=== PATIENT | female | born 1975 | race Caucasian/White ===

== ENCOUNTER → 2021-01-17 | Outpatient (CLI) | payer OTHER ==
--- NOTE | 2021-01-23 12:07 | MM ---
Reason for exam: screening (asymptomatic). Last mammogram was performed 2 years and 2 months ago. History: Taking hormonal contraceptives for 24 years beginning at age 21. Physical Findings: A clinical breast exam by your physician is recommended on an annual basis and results should be correlated with mammographic findings. MG Screening Mammo w CAD Bilateral CC, MLO, and XCCL view(s) were taken. CV view(s) were taken of the right breast. Prior study comparison: November 19, 2018, mammogram, performed at [place]. July 17, 2016, mammogram, performed at [place]. December 22, 2009, bilateral digital screening mammogram. There are scattered fibroglandular densities. There are benign appearing round calcifications bilaterally. There is no discrete abnormality. ASSESSMENT: Benign, BI-RAD 2 RECOMMENDATION: Routine screening mammogram of both breasts in 1 year.
== END ==
LOC: RADMAMWWP 11:23
PROVIDERS: ATTEND Family Medicine
DX: Z12.31 Encounter for screening mammogram for malignant neoplasm of breast (principal)
CPT/HCPCS: 77067

== ENCOUNTER → 2021-06-14 | Outpatient (CLI) | payer OTHER ==
[2021-06-14 15:20] VITALS: BP 144/82; PULSE 92; TEMP 98.1; BMI 50.1
--- NOTE | 2021-06-14 15:42 | P.HPBAR ---
Bariatric H&P - History & Physicial H&P Date: 06/14/21 History & Physicial: Visit/CC: initial clinic visit Patient initial contact: Initial weight: Initial weight in pounds: Height: 5 ft 10 in Initial BMI: Last weight: Current weight: 158.304 kg Current weight in pounds: 349.00 Current BMI: 50.1 [place] body weight (based on NIH guidelines): 68.039 kg Excess body weight loss: The patient is a 46 year-old F who presents for Bariatric Assessment. 46-year-old female presents for initial bariatric assessment. Patient interested in sleeve gastrectomy. She has friends who have had performed before. Patient suffers from osteoarthritis of her knees, hypertension, mild reflux. No history of DVT or dysphagia. Tobacco use absent for the last many years. States she may have had a duodenal ulcer in high school. Surgical history includes sinus and tonsils. No abdominal surgeries. No known hernias. Review of Systems The patient denies any acute changes in vision or hearing, no dysphagia or odynophagia, no chest pain or shortness of breath, no dysuria or hematuria, no headache, no runny nose, no rectal bleeding or melena, no unexplained weight loss Past Medical History Past Medical History: Hypertension, Thyroid Disorder History of Any Multi-Drug Resistant Organisms: None Reported Past Surgical History: Adenoidectomy, Tonsillectomy Additional Past Surgical History / Comment(s): sinus surgery x 2 Past Anesthesia/Blood Transfusion Reactions: No Reported Reaction Past Psychological History: No Psychological Hx Reported Smoking Status: Never smoker Past Alcohol Use History: Occasional Past Drug Use History: None Reported Surgical - Exam Vital Signs Temp Pulse BP 98.1 F 92 144/82 06/14/21 15:11 06/14/21 15:11 06/14/21 15:11 Physical exam: General: Well-developed, well-nourished HEENT: Normocephalic, sclerae nonicteric Abdomen: Nontender, nondistended Extremities: No edema Neuro: Alert and oriented Bariatric Assessment & Plan (1) Morbid obesity with BMI of 50.0-59.9, adult Narrative/Plan: 46-year-old with morbid obesity. Patient has associated comorbidities. Risks and benefits of sleeve gastrectomy and gastric bypass discussed in detail. Anticipated weight loss with the 2 procedures was also discussed. Patient is planning to further investigate gastric bypass given the slightly higher degree of anticipated weight loss. Patient does require a supervised weight loss program. She will notify me if she desires to see somebody to discuss gastric bypass further. For now will plan upper endoscopy in approximately 4 months. Status: Acute Bariatric Checklist Checklist: Plan: Checklist: EGD: 1. Hiatal hernia: 2. H. Pylori: HgbA1c: Vitamin D: Smoking: Primary care physician referral: Psychiatry clearance: Cardiology clearance: Sleep study: Diet journal: VTE risk score: VTE risk level: Rehab needs at discharge:
[2021-06-14 16:37] LABS: HCT 37.8 % (34.0-46.0); HGB 12.8 gm/dL (11.4-16.0); MCHC 33.9 g/dL (31.0-37.0); MCV 91.6 fL (80.0-100.0); Mean Platelet Volume 6.9; Platelet Count 425 k/uL (150-450); RBC 4.13 m/uL (3.80-5.40); RDW 13.7 % (11.5-15.5); WBC 8.8 k/uL (3.8-10.6)
[2021-06-15 01:23] LABS: Hemoglobin A1C 5.7 % (4.0-6.0)
[2021-06-15 16:11] LABS: Folate, Serum 20.4 ng/mL
[2021-06-15 16:57] LABS: African American GFR (CKD) 119.6 (60.0-200.0); Albumin 4.3 g/dL (3.80-4.90); Albumin/Globulin Ratio 1.95 (1.60-3.17); Anion Gap 14.5 mmol/L (4.00-12.00); BUN/Creat Ratio 17.14 Ratio (12.00-20.00); Calcium 9.3 mg/dL (8.7-10.3); Carbon Dioxide 21.5 mmol/L (21.6-31.8); Globulin 2.2 g/dL (1.6-3.3); Non-African American GFR(CKD) 103.2 (60.0-200.0); Potassium 4.4 mmol/L (3.5-5.5); Total Bilirubin 0.2 mg/dL (0.2-1.2); Total Protein 6.5 g/dL (6.2-8.2)
== END ==
LOC: BARWHC3 14:57
PROVIDERS: ATTEND Surgery
DX: E66.01 Morbid (severe) obesity due to excess calories (principal); I10 Essential (primary) hypertension; M17.0 Bilateral primary osteoarthritis of knee; Z68.43 Body mass index [BMI] 50.0-59.9, adult
CPT/HCPCS: 84425; 80053; 82607; 82746; 83540; 85027; 82306; 83036; 93005; G0480; G0463; 80323; 99203

== ENCOUNTER 2021-08-24 23:09 | Emergency (ER) | payer OTHER ==
[2021-08-24 23:31] VITALS: RESP 18; TEMP 99
[2021-08-25] MEDS ORDERED: ONDANSETRON 4 MG/2 ML VIAL IVP STA (00:01)
[2021-08-25] MEDS ORDERED: KETOROLAC 15 MG/ML 1 ML VIAL IVP STA (00:01)
[2021-08-25] MEDS ORDERED: SODIUM CHLORIDE 0.9% 1,000 ML IV STA (00:01)
[2021-08-25 00:30] LABS: Basophils % (A) 0 %; Eosinophils # (A) 0.3 k/uL (0-0.7); Eosinophils % (A) 1 %; HGB 13.4 gm/dL (11.4-16.0); Lymphocytes # (A) 1.6 k/uL (1.0-4.8); Lymphocytes % (A) 8 %; MCH 30.7 pg (25.0-35.0); MCHC 33.4 g/dL (31.0-37.0); MCV 91.8 fL (80.0-100.0); Mean Platelet Volume 7.8; Monocytes % (A) 5 %; Neutrophils # (A) 16.4 k/uL (1.3-7.7); Neutrophils % (A) 84 %; Platelet Count 434 k/uL (150-450); RBC 4.35 m/uL (3.80-5.40); RDW 12.4 % (11.5-15.5); WBC 19.5 k/uL (3.8-10.6)
[2021-08-25 00:39] LABS: ALT 230 U/L (4-34); AST 142 U/L (14-36); African American GFR (CKD) >90 (>60 ml/min/1.73 sqM); Albumin 4.3 g/dL (3.5-5.0); Alkaline Phosphatase 172 U/L (38-126); Amylase 41 U/L (30-110); Anion Gap 12 mmol/L; Appearance,Urine Turbid (Clear); Bacteria,Urine Many /hpf; Bilirubin,Urine Negative (Negative); Blood Urea Nitrogen 8 mg/dL (7-17); Blood,Urine Small (Negative); Calcium 9.5 mg/dL (8.4-10.2); Carbon Dioxide 22 mmol/L (22-30); Chloride 100 mmol/L (98-107); Color,Urine Yellow; Glucose 139 mg/dL (74-99); Glucose,Urine (UA) Negative (Negative); Hyaline Casts,Urine 194 /lpf (0-2); Ketones,Urine Negative (Negative); Leukocyte Esterase,Urine Large (Negative); Lipase 70 U/L (23-300); Mucus,Urine Many /hpf; Nitrite,Urine Negative (Negative); Non-African American GFR(CKD) >90 (>60 ml/min/1.73 sqM); Potassium 3.7 mmol/L (3.5-5.1); Protein,Urine 2+ (Negative); RBC,Urine 5 /hpf (0-5); Sodium 134 mmol/L (137-145); Specific Gravity,Urine 1.018 (1.001-1.035); Squamous Epithelial Cell,Urine 6 /hpf (0-4); Total Bilirubin 0.6 mg/dL (0.2-1.3); Total Protein 7.1 g/dL (6.3-8.2); WBC,Urine >182 /hpf (0-5)
[2021-08-25] MEDS ORDERED: cefTRIAXone IN SWFI 1,000 MG/10 ML SYRINGE IVP STA (00:47)
--- NOTE | 2021-08-25 01:39 | ED ---
Abdominal Pain HPI - General Chief Complaint: Abdominal Pain Stated Complaint: RLQ pain Time Seen by Provider: 08/24/21 23:52 Source: patient, RN notes reviewed Mode of arrival: ambulatory Limitations: no limitations - History of Present Illness Initial Comments: Patient is a 46-year-old female that presents to emergency department for a 2 to three-day history of right flank pain with radiation to her groin. She denies having any history of kidney stones, kidney infections, urine or tract infections patient is that she does still have her appendix and was concerned so she can emergency room. She notes that she is also having some urinary frequen cy with no discomfort. She notes that her daughter does currently have UTI. She denied any other complaints such as nausea vomiting. She notes that she did have several bouts of diarrhea several days ago. She denied any alleviating or radiating factors at this time. She denied chest pain first breath headache nausea vomiting constipation fever fatigue chills. - Related Data Home Medications Medication Instructions Recorded Confirmed L.acidoph,Paracasei, B.lactis 1 tab PO DAILY 06/14/21 06/14/21 [Probiotic] Levothyroxine Sodium [Synthroid] 200 mcg PO DAILY 06/14/21 06/14/21 Multivitamins, Thera [Multivitamin 1 tab PO DAILY 06/14/21 06/14/21 (formulary)] Spironolactone [Aldactone] 150 mg PO DAILY 06/14/21 06/14/21 Zinc 50 mg PO DAILY 06/14/21 06/14/21 Previous Rx's Medication Instructions Recorded Cephalexin [Keflex] 500 mg PO Q6HR #40 cap 08/25/21 Allergies Allergy/AdvReac Type Severity Reaction Status Date / Time No Known Allergies Allergy Verified 08/24/21 23:26 Review of Systems ROS Statement: Those systems with pertinent positive or pertinent negative responses have been documented in the HPI. ROS Other: All systems not noted in ROS Statement are negative. Past Medical History Past Medical History: Hypertension, Thyroid Disorder History of Any Multi-Drug Resistant Organisms: None Reported Past Surgical History: Adenoidectomy, Tonsillectomy Additional Past Surgical History / Comment(s): sinus surgery x 2 Past Anesthesia/Blood Transfusion Reactions: No Reported Reaction Past Psychological History: No Psychological Hx Reported Smoking Status: Never smoker Past Alcohol Use History: Occasional Past Drug Use History: None Reported General Exam Limitations: no limitations General appearance: alert, in no apparent distress, obese Head exam: Present: atraumatic, normocephalic, normal inspection Eye exam: Present: normal appearance, PERRL, EOMI. Absent: scleral icterus, conjunctival injection, periorbital swelling ENT exam: Present: normal exam, mucous membranes moist Neck exam: Present: normal inspection Respiratory exam: Present: normal lung sounds bilaterally. Absent: respiratory distress, wheezes, rales, rhonchi, stridor Cardiovascular Exam: Present: regular rate, normal rhythm, normal heart sounds. Absent: systolic murmur, diastolic murmur, rubs, gallop, clicks GI/Abdominal exam: Present: soft, tenderness (Right side and suprapubic area), normal bowel sounds. Absent: distended, guarding, rebound, rigid Extremities exam: Present: normal inspection, full ROM, normal capillary refill. Absent: tenderness, pedal edema, joint swelling, calf tenderness Back exam: Present: normal inspection, CVA tenderness (R) Neurological exam: Present: alert, oriented X3 Psychiatric exam: Present: normal affect, normal mood Skin exam: Present: warm, dry, intact, normal color. Absent: rash Course Vital Signs 08/24/21 08/25/21 23:26 00:30 Temperature 99 F Pulse Rate 106 H 99 Respiratory 18 18 Rate Blood Pressure 134/87 141/97 O2 Sat by Pulse 97 95 Oximetry Medical Decision Making - Medical Decision Making 46-year-old female complaining of right sided abdominal pain and right flank pain. Labs, 1 L normal saline, 15 mg of Toradol, 4 mg Zofran ordered. Labs: White blood cells 19.5, elevated liver enzymes, urinalysis shows rhythm 182 white blood cells. 1 g Rocephin ordered. Computed tomography scan shows right-sided hydronephrosis and hydroureter ureter and a right pole hypodensity consistent with acute pyelonephritis. Antibiotics will be sent to pharmacy. Patient is we will with discharge home after discussing labs and imaging. Case discussed with Dr. Cowan, patient can discharge home. - Lab Data Result diagrams: 08/25/21 00:17 08/25/21 00:17 Lab Results 08/25/21 08/25/21 08/25/21 Range/Units 00:17 00:17 00:17 WBC 19.5 H (3.8-10.6) k/uL RBC 4.35 (3.80-5.40) m/uL Hgb 13.4 (11.4-16.0) gm/dL Hct 40.0 (34.0-46.0) % MCV 91.8 (80.0-100.0) fL MCH 30.7 (25.0-35.0) pg MCHC 33.4 (31.0-37.0) g/dL RDW 12.4 (11.5-15.5) % Plt Count 434 (150-450) k/uL MPV 7.8 Neutrophils % 84 % Lymphocytes % 8 % Monocytes % 5 % Eosinophils % 1 % Basophils % 0 % Neutrophils # 16.4 H (1.3-7.7) k/uL Lymphocytes # 1.6 (1.0-4.8) k/uL Monocytes # 1.0 (0-1.0) k/uL Eosinophils # 0.3 (0-0.7) k/uL Basophils # 0.0 (0-0.2) k/uL Sodium 134 L (137-145) mmol/L Potassium 3.7 (3.5-5.1) mmol/L Chloride 100 (98-107) mmol/L Carbon Dioxide 22 (22-30) mmol/L Anion Gap 12 mmol/L BUN 8 (7-17) mg/dL Creatinine 0.72 (0.52-1.04) mg/dL Est GFR (CKD-EPI)AfAm >90 (>60 ml/min/1.73 sqM) Est GFR (CKD-EPI)NonAf >90 (>60 ml/min/1.73 sqM) Glucose 139 H (74-99) mg/dL Calcium 9.5 (8.4-10.2) mg/dL Total Bilirubin 0.6 (0.2-1.3) mg/dL AST 142 H (14-36) U/L ALT 230 H (4-34) U/L Alkaline Phosphatase 172 H (38-126) U/L Total Protein 7.1 (6.3-8.2) g/dL Albumin 4.3 (3.5-5.0) g/dL Amylase 41 (30-110) U/L Lipase 70 (23-300) U/L Urine Color Yellow Urine Appearance Turbid H (Clear) Urine pH 6.0 (5.0-8.0) Ur Specific [place] 1.018 (1.001-1.035) Urine Protein 2+ H (Negative) Urine Glucose (UA) Negative (Negative) Urine Ketones Negative (Negative) Urine Blood Small H (Negative) Urine Nitrite Negative (Negative) Urine Bilirubin Negative (Negative) Urine Urobilinogen 2.0 (<2.0) mg/dL Ur Leukocyte Esterase Large H (Negative) Urine RBC 5 (0-5) /hpf Urine WBC >182 H (0-5) /hpf Urine WBC Clumps Many H (None) /hpf Ur Squamous Epith Cells 6 H (0-4) /hpf Urine Bacteria Many H (None) /hpf Hyaline Casts 194 H (0-2) /lpf Urine Mucus Many H (None) /hpf Disposition Clinical Impression: Pyelonephritis Disposition: HOME SELF-CARE Condition: Stable Instructions (If sedation given, give patient instructions): Kidney Infection (ED) Additional Instructions: Please return to the Emergency Department if symptoms worsen or any other concerns. Follow-up with primary care 1-2 days. Take antibiotics as prescribed until complete. Prescriptions: Cephalexin [Keflex] 500 mg PO Q6HR #40 cap Is patient prescribed a controlled substance at d/c from ED?: No Referrals: Babar Perry DO [Primary Care Provider] - 1-2 days Time of Disposition: 02:43
--- NOTE | 2021-08-25 02:16 | CT ---
EXAMINATION TYPE: CT abdomen pelvis w con DATE OF EXAM: 08/25/2021 COMPARISON: None HISTORY: RLQ pain CT DLP: 2356 mGycm Automated exposure control for dose reduction was used. CONTRAST: Performed with IV Contrast, patient injected with 100 mL of Isovue 300. Images obtained from the diaphragm to the floor the pelvis with IV contrast. The lung bases are clear of infiltrate. There is no pleural effusion. There is no pericardial effusio n. Heart size is normal. Liver spleen stomach pancreas gallbladder appear normal. Bile ducts are nondilated. There is no adrenal mass. Right kidney appears enlarged. There is contrast opacification of both kidn eys but delayed images do not show any significant renal excretion. There is right-sided hydronephros is and hydroureter. There is some hypodensity in the cortex lower pole posterior right kidney. This m easures 4.5 cm. There is no retroperitoneal adenopathy. I do not see a definite stone in the right ur eter. The urinary bladder is almost empty. There is no inguinal hernia. Uterus is intact. There is no evidence of a pelvic mass. There is 1.5 cm cyst on the left ovary. There is no mesenteric edema. There is no ascites or free air. There is no evidence of thickened appe ndix. There is very small posterior appendix. Lumbar vertebra have normal alignment. There is vacuum disc at L2-3. There is no compression fracture . The bony pelvis is intact. The hip joints are intact. There is no mesenteric edema. There is no ascites or free air. There is some mild fat stranding and f luid around the posterior aspect of the right kidney. IMPRESSION: Right-sided hydronephrosis and hydroureter. No calculus seen. There is cortical hypodensity lower hallie e right kidney. There is some fluid around the posterior right kidney. This could relate to acute heath lonephritis. Renal obstruction not excluded. There is decreased delayed contrast in the kidneys that is suggestive of some degree of renal failure .
[2021-08-25 03:27] VITALS: BP 102/72; PULSE 96
== END 2021-08-25 03:26 | disposition home or self-care (01) ==
LOC: EC 23:09
DX: N10 Acute pyelonephritis (principal); I10 Essential (primary) hypertension; E07.9 Disorder of thyroid, unspecified; Z90.89 Acquired absence of other organs; Z87.442 Personal history of urinary calculi
CPT/HCPCS: 99284; 96374; 96375 ×2; 96361; 36415; 80053; 82150; 83690; 85025; 81001; 87086; 74177; J2405; J0696; J1885; Q9967

== ENCOUNTER → 2021-12-10 | Outpatient (CLI) | payer OTHER ==
--- NOTE | 2021-12-10 10:59 | XR ---
EXAMINATION TYPE: XR chest 1V DATE OF EXAM: 12/10/2021 COMPARISON: NONE HISTORY: Chest pain TECHNIQUE: Single frontal view of the chest is obtained. FINDINGS: There is no focal air space opacity, pleural effusion, or pneumothorax seen. The cardiac silhouette size is within normal limits. The osseous structures are intact. IMPRESSION: 1. No acute process.
[2021-12-10 12:49] VITALS: BMI 44.6
== END ==
LOC: BARWHC3 08:44
PROVIDERS: ATTEND Surgery
DX: E66.01 Morbid (severe) obesity due to excess calories (principal); G47.33 Obstructive sleep apnea (adult) (pediatric); Z71.3 Dietary counseling and surveillance; Z68.41 Body mass index [BMI] 40.0-44.9, adult
CPT/HCPCS: 71045; 97804

== ENCOUNTER 2021-12-11 11:01 | Day surgery (SDC) | payer OTHER ==
[2021-12-06 14:12] VITALS: BMI 44.4
[~2021-12-11 11:01] MED LIST: LACTATED RINGERS 1,000 ML IV SCH; LIDOCAINE 1% (10MG/ML) FOR IV START INTRADERMA PRN
[2021-12-11 11:35] VITALS: TEMP 97.7
[2021-12-11] MEDS ORDERED: PROPOFOL 10 MG/ML 20 ML VIAL IV ONE (12:10)
[2021-12-11] MEDS ORDERED: LIDOCAINE 1% INJ 10MG/ML (20 ML MDV) ONE (12:10)
--- NOTE | 2021-12-11 12:15 | P.GSHP ---
History of Present Illness H&P Date: 12/11/21 Chief Complaint: GERD, presurgical 46-year-old female last seen in the bariatric Center in June. Patient is being evaluated for sleeve gastrectomy. Mild complaints of reflux. History of possible duodenal ulcer in the past. She had a recent CAT scan showing no definite hiatal hernia. Past Medical History Past Medical History: Hypertension, Thyroid Disorder History of Any Multi-Drug Resistant Organisms: None Reported Past Surgical History: Adenoidectomy, Tonsillectomy Additional Past Surgical History / Comment(s): sinus surgery x 2 Past Anesthesia/Blood Transfusion Reactions: No Reported Reaction Smoking Status: Former smoker - Past Family History Mother Family Medical History: No Reported History Medications and Allergies Home Medications Medication Instructions Recorded Confirmed Type L.acidoph,Paracasei, B.lactis 1 tab PO DAILY 06/14/21 12/06/21 History [Probiotic] Levothyroxine Sodium [Synthroid] 200 mcg PO DAILY 06/14/21 12/06/21 History Multivitamins, Thera [Multivitamin 1 tab PO DAILY 06/14/21 12/11/21 History (formulary)] Spironolactone [Aldactone] 150 mg PO DAILY 06/14/21 12/06/21 History Zinc 50 mg PO DAILY 06/14/21 12/11/21 History Norethindrone-E.estradiol-Iron 1 each PO HS 12/06/21 12/06/21 History [Junel Fe 1.5 mg-30 Mcg Tablet] Allergies Allergy/AdvReac Type Severity Reaction Status Date / Time No Known Allergies Allergy Verified 12/11/21 11:25 Surgical - Exam Vital Signs Temp Pulse Resp BP Pulse Ox 97.7 F 97 16 125/97 98 12/11/21 11:34 12/11/21 11:34 12/11/21 11:34 12/11/21 11:34 12/11/21 11:34 Physical exam: General: Well-developed, well-nourished HEENT: Normocephalic, sclerae nonicteric Abdomen: Nontender, nondistended Extremities: No edema Neuro: Alert and oriented Assessment and Plan (1) GERD (gastroesophageal reflux disease) Narrative/Plan: Will proceed with upper endoscopy at this time Current Visit: Yes Status: Acute Code(s): K21.9 - GASTRO-ESOPHAGEAL REFLUX DISEASE WITHOUT ESOPHAGITIS SNOMED Code(s): 927394609
--- NOTE | 2021-12-11 12:22 | P.PCN ---
Date of Procedure: 12/11/21 Procedure(s) Performed: Preoperative Dx: GERD, presurgical Postoperative Dx: Mild gastritis Procedure: EGD with Bx Anesthesia: Sedation Endoscopist: Dr. Choudhury Specimens: Antrum Endoscopic Procedure: The patient was on the endoscopy table in the left decubitus position. The Olympus gastroscope was inserted into the oropharynx and passed under direct visualization to the region of the third portion of the duodenum. From that point the scope was slowly withdrawn inspecting all surfaces carefully. There were no neoplastic inflammatory or polypoid lesions throughout the duodenum. The pylorus was widely patent. The stomach was carefully inspected. There was mild gastritis present. A biopsy of the antrum took place to rule out H. pylori. Retroflexion revealed a normal hiatus. The esophagus was then carefully examined. There were no neoplastic inflammatory or polypoid lesions throughout the visualized esophagus. The patient was then taken to the recovery room in stable condition per anesthesia guidelines. Recommendations: Await biopsy results. Follow-up bariatric clinic.
[2021-12-11 12:45] VITALS: BP 125/85; PULSE 72; RESP 16
== END 2021-12-11 13:10 | disposition home or self-care (01) ==
LOC: ORWHC2ENDO 11:01
PROVIDERS: ATTEND Surgery
DX: K29.50 Unspecified chronic gastritis without bleeding (principal); Z01.818 Encounter for other preprocedural examination; K21.9 Gastro-esophageal reflux disease without esophagitis; I10 Essential (primary) hypertension; E07.9 Disorder of thyroid, unspecified; Z98.890 Other specified postprocedural states; Z87.891 Personal history of nicotine dependence; Z79.890 Hormone replacement therapy; Z79.899 Other long term (current) drug therapy
CPT/HCPCS: 81025; 88305; 43239; J2001; J2704

== ENCOUNTER → 2022-01-08 | Outpatient (CLI) | payer OTHER ==
[2022-01-08 14:43] VITALS: BP 140/97; PULSE 97; TEMP 98.6; BMI 44.1
--- NOTE | 2022-01-08 15:40 | P.BASOAP ---
Subjective Progress Note Date: 01/08/22 Principal diagnosis: Morbid obesity Patient returns after recent EGD. Patient had mild gastritis. No hiatal hernia. H. pylori was negative. Since her last visit patient has had increased back pain and is having an MRI of her back next week. She has also had increased knee pain and had bilateral knee injections recently. Patient remains interested in sleeve gastrectomy. Patient says she was told recently that her iron is low. She says her iron has always been low. Normal menstrual flow. No bowel complaints. No rectal bleeding or melena. Objective - Vital Signs Vital signs: Vital Signs Temp 98.6 F 01/08/22 14:42 Pulse 97 01/08/22 14:42 Resp BP 140/97 01/08/22 14:42 Pulse Ox Intake & Output 01/07/22 01/08/22 01/08/22 18:59 06:59 18:59 Weight 139.706 kg - Exam Abdomen: Soft, nontender, nondistended Assessment/Plan (1) Morbid obesity with BMI of 50.0-59.9, adult Narrative/Plan: 46-year-old female remains interested in sleeve gastrectomy. Discussed possibility that this may be performed robotically versus straight laparoscopic. The risks of bleeding, infection, stenosis, stricture, leak, abscess, fistula formation, peritonitis, poor weight loss, reflux, vomiting, conversion to an open procedure, aborting sleeve gastrectomy, ME, PE, DVT, and were d iscussed. The patient understands and wishes to proceed. Plan: Date: 01/08/22 Initial Weight: Initial BMI: Current Weight: 139.706 kg Current BMI: 44.1 Type of Surgery: Total Volume in Band: Previous Volume: Volume Removed: Volume Added: Band Size:
== END ==
LOC: BARWHC3 14:01
PROVIDERS: ATTEND Surgery
DX: E66.01 Morbid (severe) obesity due to excess calories (principal); K29.70 Gastritis, unspecified, without bleeding; M54.9 Dorsalgia, unspecified; Z68.41 Body mass index [BMI] 40.0-44.9, adult
CPT/HCPCS: 99211

== ENCOUNTER → 2022-01-23 | Outpatient (CLI) | payer OTHER ==
--- NOTE | 2022-01-25 13:34 | MM ---
Reason for exam: screening (asymptomatic). Last mammogram was performed 1 year ago. History: Taking hormonal contraceptives for 24 years beginning at age 21. Physical Findings: A clinical breast exam by your physician is recommended on an annual basis and results should be correlated with mammographic findings. MG Screening Mammo w CAD Bilateral CC and MLO view(s) were taken. Prior study comparison: January 17, 2021, bilateral MG screening mammo w CAD. November 19, 2018, mammogram, performed at [place]. There are scattered fibroglandular densities. A few benign scattered benign oil cyst calcifications. No significant changes when compared with prior studies. ASSESSMENT: Benign, BI-RAD 2 RECOMMENDATION: Routine screening mammogram of both breasts in 1 year.
== END | disposition home or self-care (01) ==
LOC: RADMAMWWP 15:58
PROVIDERS: ATTEND Family Medicine
DX: Z12.31 Encounter for screening mammogram for malignant neoplasm of breast (principal)
CPT/HCPCS: 77067

== ENCOUNTER → 2022-02-25 | Outpatient (CLI) | payer OTHER | END | disposition home or self-care (01) | LOC: LABPAT 14:56 | PROVIDERS: ATTEND Surgery | DX: Z53.9 Procedure and treatment not carried out, unspecified reason (principal) ==

== ENCOUNTER 2022-03-04 08:27 | Inpatient (IN) | payer OTHER ==
[2022-02-26 07:43] LABS: African American GFR (CKD) 125.5 (60.0-200.0); Albumin 4.9 g/dL (3.8-4.9); Albumin/Globulin Ratio 2.19 (1.60-3.17); Anion Gap 14.7 mmol/L (10.00-18.00); BUN/Creat Ratio 22.52 Ratio (12.00-20.00); Basophils # (A) 0.04 X 10*3/uL (0.00-0.10); Basophils % (A) 0.3 %; Blood Urea Nitrogen 13.6 mg/dL (9.0-27.0); Calcium 9.8 mg/dL (8.7-10.3); Carbon Dioxide 24.2 mmol/L (20.0-27.5); Eosinophils # (A) 0.15 X 10*3/uL (0.04-0.35); Eosinophils % (A) 1.2 %; Globulin 2.2 g/dL (1.6-3.3); HCT 40.6 % (37.2-46.3); HGB 12.7 g/dL (12.0-15.0); Immature Grans, Automated 0.2 %; Lymphocytes # (A) 2.89 X 10*3/uL (0.90-5.00); MCH 29.7 pg (27.0-32.0); MCHC 31.3 g/dL (32.0-37.0); MCV 95.1 fL (80.0-97.0); Mean Platelet Volume 10.5 fL (9.5-12.2); Monocytes # (A) 0.81 X 10*3/uL (0.20-1.00); Monocytes % (A) 6.4 %; NRBC Per 100 WBC 0 /100 WBCS (0.0-0.0); Neutrophils # (A) 8.67 X 10*3/uL (1.80-7.70); Neutrophils % (A) 68.9 %; Non-African American GFR(CKD) 108.3 (60.0-200.0); Platelet Count 455 X 10*3/uL (140-440); Potassium 4.8 mmol/L (3.5-5.5); RBC 4.27 X 10*6/uL (4.10-5.20); RDW 12.7 % (11.5-14.5); Total Bilirubin 0.2 mg/dL (0.30-1.20); Total Protein 7.1 g/dL (6.2-8.2); WBC 12.59 X 10*3/uL (4.50-10.00)
--- NOTE | 2022-03-04 08:02 | P.GSHP ---
History of Present Illness H&P Date: 03/04/22 Chief Complaint: Morbid obesity 46-year-old female here today for elective sleeve gastrectomy. She was first seen in June of last year. Patient presented with a BMI of 50 currently 42.5. Patient suffers from ulcerative arthritis hypertension and mild reflux. No history of DVT or dysphagia. Recent EGD showed mild gastritis. No abdominal surgeries in the past. Past Medical History Past Medical History: Hypertension, Osteoarthritis (OA), Thyroid Disorder Additional Past Medical History / Comment(s): DDD, bone spurs, herniated lumbar disc History of Any Multi-Drug Resistant Organisms: None Reported Past Surgical History: Adenoidectomy, Tonsillectomy Additional Past Surgical History / Comment(s): sinus surgery x 2, EGD Past Anesthesia/Blood Transfusion Reactions: No Reported Reaction Smoking Status: Former smoker - Past Family History Mother Family Medical History: No Reported History Medications and Allergies Home Medications Medication Instructions Recorded Confirmed Type L.acidoph,Paracasei, B.lactis 1 tab PO DAILY 06/14/21 02/28/22 History [Probiotic] Levothyroxine Sodium [Synthroid] 200 mcg PO MOTUWETHFR 06/14/21 02/28/22 History Multivitamins, Thera [Multivitamin 1 tab PO DAILY 06/14/21 02/28/22 History (formulary)] Spironolactone [Aldactone] 50 mg PO DAILY 06/14/21 02/28/22 History Zinc 50 mg PO DAILY 06/14/21 02/28/22 History Norethindrone-E.estradiol-Iron 1 each PO DAILY 12/06/21 02/28/22 History [Junel Fe 1.5 mg-30 Mcg Tablet] Ascorbic Acid [Vitamin C] 1,000 mg PO DAILY 02/28/22 02/28/22 History Calcium Carbonate [Calcium] 600 mg PO DAILY 02/28/22 02/28/22 History Cholecalciferol (Vitamin D3) 250 mcg PO DAILY 02/28/22 02/28/22 History [Vitamin D3 (125 MCG = 5,000 IU)] Ferrous Sulfate [Feosol] 325 mg PO DAILY 02/28/22 02/28/22 History Levothyroxine Sodium [Synthroid] 100 mcg PO SUSA 02/28/22 02/28/22 History Vitamin C/Biotin [Hair, Skin and 1 tab PO DAILY 02/28/22 02/28/22 History Nails Chew] Allergies Allergy/AdvReac Type Severity Reaction Status Date / Time No Known Allergies Allergy Verified 02/28/22 15:17 Surgical - Exam Physical exam: General: Well-developed, well-nourished HEENT: Normocephalic, sclerae nonicteric Abdomen: Nontender, nondistended Extremities: No edema Neuro: Alert and oriented Results - Labs 02/25/22 16:13 02/25/22 16:13 Assessment and Plan (1) Morbid obesity with BMI of 50.0-59.9, adult Narrative/Plan: 46-year-old female with morbid obesity and associated comorbidities. We'll proceed with da Karol assisted laparoscopic sleeve gastrectomy, possible open. The risks of bleeding, infection, stenosis, stricture, leak, abscess, fistula formation, peritonitis, poor weight loss, reflux, vomiting, conversion to an open procedure, aborting sleeve gastrectomy, VT, PE, DVT, and were discussed. The patient understands and wishes to proceed. Status: Acute Code(s): E66.01 - MORBID (SEVERE) OBESITY DUE TO EXCESS CALORIES; Z68.43 - BODY MASS INDEX [BMI] 50.0-59.9, ADULT SNOMED Code(s): 158732179
[~2022-03-04 08:27] MED LIST changes: +DEXAMETHASONE SOD PHOSPHATE 4 MG/ML 1 ML VIAL IV ONE; +ENOXAPARIN 40 MG/0.4 ML SYRINGE SQ PRN; -LACTATED RINGERS 1,000 ML IV SCH; +MIDAZOLAM 2 MG/2 ML VIAL IV PRN; +ONDANSETRON 4 MG/2 ML VIAL IVP ONE; +ceFAZolin 3 GM in SODIUM CHLORIDE 0.9% 100 ML IVPB PRN
[2022-03-04] MEDS: LACTATED RINGERS 1,000 ML IV SCH (08:56)
[2022-03-04] MEDS ORDERED: MIDAZOLAM 2 MG/2 ML VIAL ONE (10:43)
[2022-03-04] MEDS ORDERED: BUPIVACAIN-EPI 0.25%-1:200,000 30 ML VIAL SQ ONE ×2 (10:43→11:00)
[2022-03-04] MEDS ORDERED: GLYCOPYRROLATE 0.2 MG/ML 2 ML VIAL ONE (10:43)
[2022-03-04] MEDS ORDERED: SUCCINYLCHOLINE CHLORIDE 100 MG/5 ML SYR IV ONE (10:43)
[2022-03-04] MEDS ORDERED: HYDROmorphone (PF) 1 MG/ML ONE (10:43)
[2022-03-04] MEDS ORDERED: ROCURONIUM 10 MG/ML (5 ML VIAL) IV ONE (10:43)
[2022-03-04] MEDS ORDERED: PROPOFOL 10 MG/ML 20 ML VIAL IV ONE (10:43)
[2022-03-04] MEDS ORDERED: LIDOCAINE 2% INJ 20 MG/ML (2 ML VIAL) ONE (10:43)
[2022-03-04] MEDS ORDERED: fentaNYL (PF) 50 MCG/ML 2 ML AMP ONE (10:43)
[2022-03-04] MEDS ORDERED: NEOSTIGMINE 1 MG/ML 10 ML VIAL ONE (10:43)
[2022-03-04] MEDS ORDERED: LACTATED RINGERS 1,000 ML IV ONE (11:53)
[2022-03-04] MEDS ORDERED: diphenhydrAMINE 50 MG/ML 1 ML VIAL IVP PRN (12:32)
[2022-03-04] MEDS ORDERED: NALOXONE 0.4 MG/ML 1 ML VIAL IV PRN (12:32)
[2022-03-04] MEDS ORDERED: HYOSCYAMINE ORAL DROPS 1.875 MG/15 ML BOTTLE PO PRN (12:32)
[2022-03-04] MEDS ORDERED: ACETAMINOPHEN IV (For NPO) 1,000 MG in EMPTY BAG 1 BAG IVPB SCH (12:45)
--- NOTE | 2022-03-04 12:54 | P.OP ---
Date of Procedure: 03/04/22 Procedure(s) Performed: PREOPERATIVE DIAGNOSIS: Morbid obesity, hypertension, GERD, arthritis POSTOPERATIVE DIAGNOSIS: Same PROCEDURE: Da Karol assisted laparoscopic sleeve gastrectomy SURGEON: Kei EBL: Minimal ANESTHESIA: General COMPLICATIONS: None OPERATIVE PROCEDURE: Patient was placed in the operating table in the supine position. The patient was then placed under general anesthesia at that time. The abdomen was prepped and draped in the usual sterile fashion. A 5 mm optical trocar was placed in the left periumbilical location 20 cm inferior to the xiphoid process. Insufflation took place up to 15 mmHg. No adhesions were seen. A 5 mm subxiphoid incision was made and the medium Mariano retractor was used to elevate the left lobe of liver anteriorly. This was held in place using the fixed arm retractor. An additional 12 mm trocar was placed in the right paramedian location and 2 additional 8 mm trochars were placed in the left upper quadrant laterally. All of these trochars were placed along the same plane. The initial 5 was then switched to an 8 mm trocar. The robot was then docked appropriately. The 8 mm camera was placed in the left paramedian trocar site down viewing. A fenestrated bipolar was placed in arm 1, arm 3 had the vessel sealer, arm 4 had the small grasping retractor. The hiatus was inspected and there was no visible hiatal hernia. At that point I moved to the distal aspect of the greater curvature the stomach. The short gastric vasculature were divided using the vessel sealer. This dissection took place distally until we were 4 cm from the pylorus. The posterior adhesions were divided as well. The dissection then took place proximally along the stomach until the posterior short gastrics were divided and the fundus of the stomach was fully mobilized. Once the stomach was fully mobilized the blunt tipped 40-Maori bougie dilator was advanced into the stomach and advanced all the way to the prepyloric location. The patient's stomach by palpation seemed to be of average thickness. No buttressing was utilized. A total of 7 firings of the stapler were required. 1 Green, 3 blue, 3 white. The stomach was then placed in the right upper quadrant after it was fully excised. The oral gastric tube was reinserted. The stomach was insufflated with approximately 100 mL of methylene blue. No evidence of leak or obstruction was seen. No significant bleeding along the staple line was noted. Tisseel fibrin glue was then used along the length of the staple line. The robot was then undocked. The da Karol laparoscope was used and the stomach was removed from the 12 mm trocar site without difficulty. The fascia at the 12mm site was closed using [id number] 0 Vicryl sutures with the laparoscopic suture passer and Zion Candelario technique. The insufflation was evacuated. The skin at all 5 incisions were closed using 4-0 Monocryl sutures. Skin glue was then applied. DISPOSITION: Stable to recovery room
[2022-03-04] MEDS ORDERED: ONDANSETRON 4 MG/2 ML VIAL IVP ONE (13:00)
[2022-03-04] MEDS: HYDROmorphone 0.5 MG/0.5 ML SYRINGE IVP PRN ×2 (13:12→14:18)
[2022-03-04] MEDS: ALBUTEROL NEBULIZED 2.5 MG/3 ML INHALATION SCH ×2 (16:14→19:23)
[2022-03-04] MEDS: HYDROmorphone 1 MG/ML 1 ML SYRINGE IVP PRN ×2 (16:49→20:26)
[2022-03-04] MEDS: 0.9% NACL WITH KCL 20 MEQ/L 1,000 ML IV SCH (17:19)
[2022-03-04] MEDS: ACETAMINOPHEN IV (For NPO) 1,000 MG in EMPTY BAG 1 BAG IVPB SCH (21:39)
[2022-03-05] MEDS: 0.9% NACL WITH KCL 20 MEQ/L 1,000 ML IV SCH ×4 (00:05→17:35)
[2022-03-05] MEDS: HYDROmorphone 1 MG/ML 1 ML SYRINGE IVP PRN ×4 (01:29→17:36)
[2022-03-05] MEDS: SIMETHICONE 40 MG/0.6 ML DROPS 2,000 MG/30 ML BOTTLE PO PRN (01:29)
[2022-03-05] MEDS: ACETAMINOPHEN IV (For NPO) 1,000 MG in EMPTY BAG 1 BAG IVPB SCH ×2 (03:54→09:07)
[2022-03-05 06:06] LABS: African American GFR (CKD) >90 (>60 ml/min/1.73 sqM); Anion Gap 12 mmol/L; Blood Urea Nitrogen 7 mg/dL (7-17); Calcium 8.9 mg/dL (8.4-10.2); Carbon Dioxide 20 mmol/L (22-30); Chloride 104 mmol/L (98-107); Magnesium 1.8 mg/dL (1.6-2.3); Non-African American GFR(CKD) >90 (>60 ml/min/1.73 sqM); Phosphorus 3.9 mg/dL (2.5-4.5); Potassium 4.6 mmol/L (3.5-5.1); Sodium 136 mmol/L (137-145)
[2022-03-05] MEDS: LACTATED RINGERS 1,000 ML IV SCH (06:56)
[2022-03-05] MEDS: PANTOPRAZOLE 40 MG/10 ML VIAL IV SCH (09:08)
[2022-03-05] MEDS: ENOXAPARIN 30 MG/0.3 ML SYRINGE SQ SCH (09:08)
[2022-03-05] MEDS: ALBUTEROL NEBULIZED 2.5 MG/3 ML INHALATION SCH ×4 (09:16→19:04)
[2022-03-05 09:18] LABS: Basophils # (A) 0.01 X 10*3/uL (0.00-0.10); Basophils % (A) 0.1 %; Eosinophils # (A) 0.01 X 10*3/uL (0.04-0.35); Eosinophils % (A) 0.1 %; HCT 35.7 % (37.2-46.3); HGB 11.2 g/dL (12.0-15.0); Immature Grans, Automated 0.9 %; Lymphocytes # (A) 2.47 X 10*3/uL (0.90-5.00); Lymphocytes % (A) 19.5 %; MCH 30.1 pg (27.0-32.0); MCHC 31.4 g/dL (32.0-37.0); Mean Platelet Volume 10.7 fL (9.5-12.2); Monocytes # (A) 1.18 X 10*3/uL (0.20-1.00); Monocytes % (A) 9.3 %; NRBC Per 100 WBC 0 /100 WBCS (0.0-0.0); Neutrophils # (A) 8.85 X 10*3/uL (1.80-7.70); Neutrophils % (A) 70.1 %; Platelet Count 316 X 10*3/uL (140-440); RBC 3.72 X 10*6/uL (4.10-5.20); RDW 12.9 % (11.5-14.5); WBC 12.64 X 10*3/uL (4.50-10.00)
--- NOTE | 2022-03-05 09:45 | FL ---
EXAMINATION TYPE: FL UGI DATE OF EXAM: 03/05/2022 LIMITED UGI: CLINICAL HISTORY: Morbid Obesity, gastric sleeve surgery yesterday. TECHNIQUE: Limited UGI-esophagram is performed utilizing 30 oz of Isovue-370. A total of 24 seconds of fluoroscopic time was utilized during procedure and 11 images obtained. COMPARISON: CT abdomen and pelvis August 25, 2021. FINDINGS: The patient swallowed contrast without difficulty or delay. Esophageal peristalsis and mo tility are within normal limits. There is good flow of contrast along the diaphragmatic hiatus into proximal stomach and subsequent flow through proximal anastomosis into gastric sleeve. There is good flow from distal sleeve and anastomosis into pylorus and duodenal sweep. Patient remains asymptomatic . There is no evidence of contrast extravasation to suggest leak. Tiny amount of free air below diaph ragms is presumed postsurgical IMPRESSION: No evidence of leak or significant obstruction status post recent gastric sleeve surgery yesterday.
[2022-03-05] MEDS ORDERED: ONDANSETRON 4 MG/2 ML VIAL IVP PRN (11:05)
[2022-03-05] MEDS ORDERED: ONDANSETRON 4 MG/2 ML VIAL IVP STA (11:06)
[2022-03-05] MEDS ORDERED: MAGNESIUM SULFATE-D5W PMX 1 GM in DEXTROSE/WATER 1 100ML.BAG IVPB ONE (11:08)
--- NOTE | 2022-03-05 11:38 | P.PN ---
Subjective Progress Note Date: 03/05/22 CHIEF COMPLAINT: Morbid obesity HISTORY OF PRESENT ILLNESS: Patient is postop day #1 status post laparoscopic sleeve gastrectomy. Patient is status post upper GI showing no evidence of leak or obstruction. Patient complaining of some abdominal pain at the top of the abdomen. Denies any flatus. Denies any difficulty urinating. She has been having nausea and heartburn. Denies any vomiting. Afebrile. WBC is 12.64 Hgb 11.2 platelets 316 sodium 136 potassium is 4.6 creatinine 0.61 magnesium 1.8 PHYSICAL EXAM: VITAL SIGNS: Reviewed. GENERAL: Well-developed in no acute distress. HEENT: No sclera icterus. Extraocular movements grossly intact. Moist buccal mucosa. Head is atraumatic, normocephalic. ABDOMEN: Soft. Nondistended. Abdominal binder in place NEUROLOGIC: Alert and oriented. Cranial nerves II through XII grossly intact. ASSESSMENT: 1. Morbid obesity status post laparoscopic sleeve gastrectomy 2. Hypertension 3. GERD 4. Osteoarthritis PLAN: -Start bariatric clear liquid diet -Add IV Toradol for pain -Add Zofran 4 mg IV every 6 hours as needed for nausea -Give 1 g of magnesium sulfate for magnesium of 1.8 -Continue IV fluids -Encourage patient to ambulate -Encourage patient to use incentive spirometer -GI prophylaxis Protonix and DVT prophylaxis Lovenox Physician Manager Mining note has been reviewed by physician. Signing provider agrees with the documented findings, assessment, and plan of care. I have personally seen and examined the patient, reviewed the METAL CASTER /PAs history, exam and MDM and agree with the assessment and plan as written. Based on total visit time, I have performed more than 50% of the visit. As above: Patient complaining of hiccups. Mild nausea. Pain is fairly well controlled. She has been ambulating. Upper GI shows no leak or obstruction. Begin bariatric liquids. Add Toradol for pain control. Reassess for discharge tomorrow. Objective - Vital Signs Vital signs: Vital Signs Temp 98.2 F 03/05/22 07:13 Pulse 74 03/05/22 09:27 Resp 16 03/05/22 09:27 BP 109/70 03/05/22 07:13 Pulse Ox 98 03/05/22 09:23 Intake & Output 03/04/22 03/05/22 03/05/22 18:59 06:59 18:59 Intake Total 1600 Output Total 25 Balance 1575 Weight 132.5 kg Intake: IV 1600 Output: Estimated Blood Loss 25 Other: Voiding Method Toilet # Voids 3 - Labs CBC & Chem 7: 03/05/22 04:57 03/05/22 04:57 Labs: Abnormal Lab Results - Last 24 Hours (Table) 03/05/22 03/05/22 Range/Units 04:57 04:57 WBC 12.64 H (4.50-10.00) X 10*3/uL RBC 3.72 L (4.10-5.20) X 10*6/uL Hgb 11.2 L (12.0-15.0) g/dL Hct 35.7 L (37.2-46.3) % MCHC 31.4 L (32.0-37.0) g/dL Immature Gran # 0.12 H (0.00-0.04) X 10*3/uL Neutrophils # 8.85 H (1.80-7.70) X 10*3/uL Monocytes # 1.18 H (0.20-1.00) X 10*3/uL Eosinophils # 0.01 L (0.04-0.35) X 10*3/uL Sodium 136 L (137-145) mmol/L Carbon Dioxide 20 L (22-30) mmol/L
[2022-03-05] MEDS: KETOROLAC 15 MG/ML 1 ML VIAL IVP SCH ×2 (11:56→18:29)
[2022-03-05] MEDS: LEVOTHYROXINE 100 MCG TAB PO SCH (12:29)
[2022-03-05] MEDS: SPIRONOLACTONE 25 MG TAB PO SCH (12:29)
--- NOTE | 2022-03-05 14:22 | P.CONS ---
History of Present Illness - Reason for Consult Consult date: 03/05/22 Medical management status post laparoscopic gastric sleeve - History of Present Illness This is a pleasant 46-year-old female who was admitted under surgical services for elective laparoscopic sleeve gastrectomy with Dr. Choudhury yesterday and we are consulted for medical management. patient has a past medical history of morbid obesity, hypertension, osteoarthritis, hypothyroidism, degenerative disc disease, former smoker. Patient had been following with Dr. Weber in the outpatient setting and her primary care provider is Dr. Mariana Perry. Patient reports to taking Aldactone daily and this is used for acne that is prescribed by her primary care provider.patient's WBC mildly elevated at 12.64 with a hemoglobin of 11.2 and platelets are 316. Sodium is 136 with a potassium 4.6, BUN is 7, creatinine is 0.61, magnesium mildly low at 1.8 and will replace per protocol. Patient had upper GI series status post gastrectomy today showing no evidence of leak or significant obstruction and patient will be started on clear liquids per surgical services. appropriate home medications will be resumed and we will follow with general surgery during hospitalization. Review Of Systems: Constitutional: No fever, no chills, no night sweats. No weight change. No weakness, fatigue or lethargy. No daytime sleepiness. EENT: No headache. No blurred vision or double vision, no loss of vision. No loss of Hearing, no ringing in the ears, no dizziness. No nasal drainage or congestion. No epistaxis. No sore throat. Lungs: No shortness of breath, cough, no sputum production. No wheezing. Cardiovascular: No chest pain, no lower extremity edema. No palpitations. No paroxysmal nocturnal dyspnea. No orthopnea. No lightheadedness or dizziness. No syncopal episodes. Abdominal: reports mild abdominal pain in the upper epigastric region. reports intermittent nausea, denies vomiting. No diarrhea. No constipation. No bloody or tarry stools.. No loss of appetite. reports no gas and no bowel movement as of yet Genitourinary: No dysuria, increased frequency, urgency. No urinary retention. Musculoskeletal: No myalgias. No muscle weakness, no gait dysfunction, no frequent falls. No back pain. No neck pain. Integumentary: No wounds, no lesions. No rash or pruritus. No unusual bruising. No change in hair or nails. Neurologic: No aphasia. No facial droop. No change in mentation. No head injury. No headache. No paralysis. No paresthesia. Psychiatric: No depression. No anxiety. No mood swings. Endocrine: No abnormal blood sugars. No weight change. No excessive sweating or thirst. No cold intolerance. Active Medications Albuterol Sulfate (Albuterol Nebulized 2.5 Mg/3 Ml) 2.5 mg INHALATION RT-QID [facility] Last Admin: 03/04/22 19:23 Dose: Not Given Documented by: Bisacodyl (Bisacodyl 5 Mg Tablet.Dr) 15 mg PO ONCE PRN PRN Reason: Constipation Diphenhydramine HCl (Diphenhydramine 50 Mg/Ml 1 Ml Vial) 25 mg IVP Q6HR PRN PRN Reason: Itching Enoxaparin Sodium (Enoxaparin 30 Mg/0.3 Ml Syringe) 30 mg SQ DAILY [facility] Hydromorphone HCl (Hydromorphone 1 Mg/Ml 1 Ml Syringe) 1 mg IVP Q3HR PRN PRN Reason: Pain Last Admin: 03/05/22 07:20 Dose: 1 mg Documented by: Hyoscyamine (Hyoscyamine Oral Drops 1.875 Mg/15 Ml Bottle) 0.125 mg PO Q6HR PRN PRN Reason: Esophageal Spasm Lactated Ringer's (Lactated Ringers) 1,000 mls @ 20 mls/hr IV .Q24H [facility] Last Admin: 03/05/22 06:56 Dose: Not Given Documented by: Potassium Chloride/Sodium Chloride (Ns-Kcl 20 Meq/L Iv Solution) 1,000 mls @ 100 mls/hr IV .Q10H [facility] Last Admin: 03/05/22 07:21 Dose: 100 mls/hr Documented by: Acetaminophen 1,000 mg/ IV (Solution) 100 mls @ 400 mls/hr IVPB Q6H [facility] Stop: 03/05/22 09:14 Last Admin: 03/05/22 03:54 Dose: 400 mls/hr Documented by: Lidocaine HCl (Lidocaine 1% (10mg/Ml) For Iv Start) 0.1 ml INTRADERMA PER PROTOCOL PRN PRN Reason: IV Start Naloxone HCl (Naloxone 0.4 Mg/Ml 1 Ml Vial) 0.2 mg IV Q2M PRN PRN Reason: Opioid Reversal Pantoprazole Sodium (Pantoprazole 40 Mg/10 Ml Vial) 40 mg IV DAILY AB Simethicone (Simethicone 40 Mg/0.6 Ml Drops 2,000 Mg/30 Ml Bottle) 40 mg PO Q6HR PRN PRN Reason: Bloating Last Admin: 03/05/22 01:29 Dose: 40 mg Documented by: PHYSICAL EXAMINATION: GENERAL: The patient is alert and oriented x4, Well developed, well nourished. morbidly obese HEENT: Pupils are round and equally reacting to light. EOMI. no scleral icterus. No conjunctival pallor. Normocephalic, atraumatic. No pharyngeal erythema. No thyromegaly. CARDIOVASCULAR: S1 and S2 muffled PULMONARY: diminished breath sounds bilaterally with no wheezing or rhonchi noted. ABDOMEN: soft. morbidly obese mildly tender on exam in the epigastric region. non-distended, sluggish bowel sounds. No palpable organomegaly. MUSCULOSKELETAL: No joint swelling or deformity. EXTREMITIES: No cyanosis, clubbing, or pedal edema. NEUROLOGICAL: Gross neurological examination did not reveal any focal deficits. SKIN: No rashes. Assessment: morbid obesity with a BMI of 41.9,status post laparoscopically sleeve gastrectomy WBC mildly elevated most likely reactive from surgery hypertension history Gastroesophageal reflux disease Osteoarthritis Hypothyroidism Chronic acne takes Aldactone daily GI prophylaxis DVT prophylaxis Full code Plan: patient is status post sleeve gastrectomy and underwent upper GI series showing no evidence of leak or obstruction and will be started on clear liquids per surgery recommendations. Verified with pharmacy on home medications and appropriate home medications have been resumed. Patient denies any passing gas or bowel movement as of yet and encouraged increased activity as tolerated. Patient reports to getting up and walking today and does have abdominal binder noted. Surgical site is dry and intact. Patient is voiding with no difficulties and does not have an indwelling Kim catheter. Encouraged incentive spirometer use at least 10 times every hour while awake. WBC mildly elevated which is possibly reactive secondary to surgery and recommend repeat labs in the morning as patient is afebrile, denies chest pain or shortness of breath and denies any pain with urination or frequency. we we'll continue to follow during hospitalization. Thank you for this consultation. The impression and plan of care has been dictated by Maria Guadalupe Ortega, nurse practitioner as directed. MD Ronnie I have performed a history and examination and MDM of this patient, discussed the same with the dictator, and agree with the dictator's assessment and plan as written ,documented as a scribe. Based on total visit time, I have performed more than 50% of the visit. Any additional findings or plans will be noted. Past Medical History Past Medical History: Hypertension, Osteoarthritis (OA), Thyroid Disorder Additional Past Medical History / Comment(s): DDD, bone spurs, herniated lumbar disc History of Any Multi-Drug Resistant Organisms: None Reported Past Surgical History: Adenoidectomy, Tonsillectomy Additional Past Surgical History / Comment(s): sinus surgery x 2, EGD Past Anesthesia/Blood Transfusion Reactions: No Reported Reaction Smoking Status: Former smoker - Past Family History Mother Family Medical History: No Reported History Medications and Allergies Home Medications Medication Instructions Recorded Confirmed Type L.acidoph,Paracasei, B.lactis 1 tab PO DAILY 06/14/21 03/04/22 History [Probiotic] Levothyroxine Sodium [Synthroid] 200 mcg PO MOTUWETHFR 06/14/21 03/04/22 History Multivitamins, Thera [Multivitamin 1 tab PO DAILY 06/14/21 03/04/22 History (formulary)] Spironolactone [Aldactone] 50 mg PO DAILY 06/14/21 03/04/22 History Zinc 50 mg PO DAILY 06/14/21 03/04/22 History Norethindrone-E.estradiol-Iron 1 each PO DAILY 12/06/21 03/04/22 History [Junel Fe 1.5 mg-30 Mcg Tablet] Ascorbic Acid [Vitamin C] 1,000 mg PO DAILY 02/28/22 03/04/22 History Calcium Carbonate [Calcium] 600 mg PO DAILY 02/28/22 03/04/22 History Cholecalciferol (Vitamin D3) 250 mcg PO DAILY 02/28/22 03/04/22 History [Vitamin D3 (125 MCG = 5,000 IU)] Ferrous Sulfate [Feosol] 325 mg PO DAILY 02/28/22 03/04/22 History Levothyroxine Sodium [Synthroid] 100 mcg PO SUSA 02/28/22 03/04/22 History Vitamin C/Biotin [Hair, Skin and 1 tab PO DAILY 02/28/22 03/04/22 History Nails Chew] Allergies Allergy/AdvReac Type Severity Reaction Status Date / Time No Known Allergies Allergy Verified 03/04/22 08:59 Physical Exam Vitals: Vital Signs Temp Pulse Pulse Pulse Resp BP Pulse Ox 03/05/22 07:13 98.2 F 78 18 109/70 99 03/05/22 05:00 98.2 F 82 17 150/80 99 03/05/22 01:35 98.5 F 91 16 131/84 100 03/04/22 19:02 97.7 F 78 18 131/69 97 03/04/22 17:45 102 H 129/75 97 03/04/22 17:30 109 H 102/63 92 L 03/04/22 17:15 100 109/69 94 L 03/04/22 17:00 104 H 124/78 03/04/22 16:45 90 143/81 98 03/04/22 16:30 90 140/82 99 03/04/22 16:23 92 03/04/22 16:15 99.1 F 96 18 120/73 98 03/04/22 16:14 82 03/04/22 15:39 101 H 18 142/71 94 L 03/04/22 15:16 99 16 146/75 94 L 03/04/22 15:13 100 16 145/76 94 L 03/04/22 14:54 100 16 152/76 95 03/04/22 14:34 99 16 149/77 95 03/04/22 14:00 94 16 158/72 96 03/04/22 13:30 88 16 160/71 96 03/04/22 13:15 94 16 161/75 98 03/04/22 13:00 87 16 158/74 98 03/04/22 12:45 89 16 163/75 100 03/04/22 12:30 104 H 16 160/82 100 03/04/22 09:02 97.5 F L 99 18 164/90 95 Intake and Output 03/04/22 03/05/22 03/05/22 22:59 06:59 14:59 Intake Total 100 Balance 100 Intake: IV 100 Other: Voiding Method Toilet # Voids 3 Results CBC & Chem 7: 03/05/22 04:57 03/05/22 04:57 Labs: Abnormal Lab Results - Last 24 Hours (Table) 03/05/22 Range/Units 04:57 Sodium 136 L (137-145) mmol/L Carbon Dioxide 20 L (22-30) mmol/L
[2022-03-06] MEDS: KETOROLAC 15 MG/ML 1 ML VIAL IVP SCH ×5 (00:03→23:42)
[2022-03-06] MEDS: HYDROmorphone 1 MG/ML 1 ML SYRINGE IVP PRN (00:09)
[2022-03-06] MEDS: 0.9% NACL WITH KCL 20 MEQ/L 1,000 ML IV SCH ×2 (04:23→17:57)
[2022-03-06] MEDS: LEVOTHYROXINE 100 MCG TAB PO SCH (05:50)
[2022-03-06] MEDS: ALBUTEROL NEBULIZED 2.5 MG/3 ML INHALATION SCH ×4 (07:30→20:00)
[2022-03-06] MEDS: LACTATED RINGERS 1,000 ML IV SCH (07:33)
[2022-03-06] MEDS: SIMETHICONE 40 MG/0.6 ML DROPS 2,000 MG/30 ML BOTTLE PO PRN ×4 (07:37→23:41)
[2022-03-06] MEDS: SPIRONOLACTONE 25 MG TAB PO SCH (07:38)
[2022-03-06] MEDS: PANTOPRAZOLE 40 MG/10 ML VIAL IV SCH (07:38)
[2022-03-06] MEDS: ENOXAPARIN 30 MG/0.3 ML SYRINGE SQ SCH (07:38)
[2022-03-06] MEDS ORDERED: bisacodyL 5 MG TABLET.DR PO PRN (08:00)
[2022-03-06 10:03] LABS: Basophils # (A) 0.02 X 10*3/uL (0.00-0.10); Basophils % (A) 0.3 %; Eosinophils # (A) 0.09 X 10*3/uL (0.04-0.35); Eosinophils % (A) 1.3 %; HCT 33.4 % (37.2-46.3); HGB 10.2 g/dL (12.0-15.0); Immature Grans, Automated 0.3 %; Lymphocytes # (A) 2.88 X 10*3/uL (0.90-5.00); Lymphocytes % (A) 41.8 %; MCH 29.8 pg (27.0-32.0); MCHC 30.5 g/dL (32.0-37.0); MCV 97.7 fL (80.0-97.0); Mean Platelet Volume 11.2 fL (9.5-12.2); Monocytes # (A) 0.58 X 10*3/uL (0.20-1.00); Monocytes % (A) 8.4 %; NRBC Per 100 WBC 0 /100 WBCS (0.0-0.0); Neutrophils % (A) 47.9 %; Platelet Count 258 X 10*3/uL (140-440); RBC 3.42 X 10*6/uL (4.10-5.20); RDW 13.1 % (11.5-14.5); WBC 6.89 X 10*3/uL (4.50-10.00)
--- NOTE | 2022-03-06 11:24 | P.PN ---
Subjective Progress Note Date: 03/06/22 CHIEF COMPLAINT: Morbid obesity HISTORY OF PRESENT ILLNESS: Patient is postop day #2 status post laparoscopic sleeve gastrectomy. Patient reports feeling a heaviness in the epigastric area after drinking her liquids. She is having flatus. Did have 2 episodes of diarrhea. Her nausea from yesterday has improved. Denies any vomiting. She has been up and ambulating. Afebrile. WBC is down from 12.64-6.89 hemoglobin is 10.2 platelets 258 magnesium normal at 2.1 PHYSICAL EXAM: VITAL SIGNS: Reviewed. GENERAL: Well-developed in no acute distress. HEENT: No sclera icterus. Extraocular movements grossly intact. Moist buccal mucosa. Head is atraumatic, normocephalic. ABDOMEN: Soft. Nondistended. Abdominal binder in place NEUROLOGIC: Alert and oriented. Cranial nerves II through XII grossly intact. ASSESSMENT: 1. Morbid obesity status post laparoscopic sleeve gastrectomy 2. Hypertension 3. GERD 4. Osteoarthritis PLAN: -Continue bariatric clear liquid diet -Educated patient to take smaller sips of liquid -Continue pain medication as needed -Continue IV fluids -Encourage patient to ambulate -Encourage patient to use incentive spirometer -GI prophylaxis Protonix and DVT prophylaxis Lovenox -Possible discharge tomorrow Physician Pediatric Licensed Practical Nurse note has been reviewed by physician. Signing provider agrees with the documented findings, assessment, and plan of care. I have personally seen and examined the patient, reviewed the PRODUCT MANAGER [employer] /PAs history, exam and MDM and agree with the assessment and plan as written. Based on total visit time, I have performed more than 50% of the visit. As above: Patient having some discomfort when drinking today that is worse than it was yesterday. She is ambulating. Labs improved. She is afebrile without tachycardia. Continue sips of liquids for now. Reevaluate tomorrow for discharge. Objective - Vital Signs Vital signs: Vital Signs Temp 98 F 03/06/22 07:01 Pulse 59 L 03/06/22 07:01 Resp 17 03/06/22 07:01 BP 122/77 03/06/22 07:01 Pulse Ox 100 03/06/22 07:01 Intake & Output 03/05/22 03/06/22 03/06/22 18:59 06:59 18:59 Other: # Voids 3 2 - Labs CBC & Chem 7: 03/06/22 05:36 03/05/22 04:57 Labs: Abnormal Lab Results - Last 24 Hours (Table) 03/06/22 Range/Units 05:36 RBC 3.42 L (4.10-5.20) X 10*6/uL Hgb 10.2 L (12.0-15.0) g/dL Hct 33.4 L (37.2-46.3) % MCV 97.7 H (80.0-97.0) fL MCHC 30.5 L (32.0-37.0) g/dL
[2022-03-06 11:39] VITALS: BMI 41.9
--- NOTE | 2022-03-06 14:04 | P.PN ---
Subjective Progress Note Date: 03/06/22 - Reason for Consult Consult date: 03/05/22 Medical management status post laparoscopic gastric sleeve - History of Present Illness This is a pleasant 46-year-old female who was admitted under surgical services for elective laparoscopic sleeve gastrectomy with Dr. Choudhury yesterday and we are consulted for medical management. patient has a past medical history of morbid obesity, hypertension, osteoarthritis, hypothyroidism, degenerative disc disease, former smoker. Patient had been following with Dr. Weber in the outpatient setting and her primary care provider is Dr. Mariana Perry. Patient reports to taking Aldactone daily and this is used for acne that is prescribed by her primary care provider.patient's WBC mildly elevated at 12.64 with a hemoglobin of 11.2 and platelets are 316. Sodium is 136 with a potassium 4.6, BUN is 7, creatinine is 0.61, magnesium mildly low at 1.8 and will replace per protocol. Patient had upper GI series status post gastrectomy today showing no evidence of leak or significant obstruction and patient will be started on clear liquids per surgical services. appropriate home medications will be resumed and we will follow with general surgery during hospitalization. 03/06/2022 She is seen in follow-up this morning reports to having gas and is status post sleeve gastrectomy. Patient denies any bowel movements as of yet and has been ambulating frequently. Patient with some mild occasional nausea although much improved from yesterday she reports. Patient having some increased epigastric pain with liquids especially after drinking. General surgery is aware recommending close observation over the next 24 hours and also encourage the patient to take smaller sips. Patient also reports to having a couple episodes of diarrhea this morning. Patient is maintained on bariatric clear liquids and will continue. WBC improved and is 6.89 today. Magnesium is 2.1. Patient is afebrile and denies any chest pain or shortness of breath. Review of systems: Constitutional: No reports of fatigue, fever, or chills Cardiovascular: No reports of chest pain or palpitations Respiratory: No reports of shortness of breath or cough GI: No reports of nausea, vomiting, or diarrhea : No reports of dysuria or retention Neurovascular: No reports of weakness or numbness All medications have been reviewed Active Medications Albuterol Sulfate (Albuterol Nebulized 2.5 Mg/3 Ml) 2.5 mg INHALATION RT-QID AB Last Admin: 03/06/22 11:38 Dose: Not Given Documented by: Bisacodyl (Bisacodyl 5 Mg Tablet.Dr) 15 mg PO ONCE PRN PRN Reason: Constipation Diphenhydramine HCl (Diphenhydramine 50 Mg/Ml 1 Ml Vial) 25 mg IVP Q6HR PRN PRN Reason: Itching Enoxaparin Sodium (Enoxaparin 30 Mg/0.3 Ml Syringe) 30 mg SQ DAILY [facility] Last Admin: 03/06/22 07:38 Dose: 30 mg Documented by: Hydromorphone HCl (Hydromorphone 1 Mg/Ml 1 Ml Syringe) 1 mg IVP Q3HR PRN PRN Reason: Pain Last Admin: 03/06/22 00:09 Dose: 1 mg Documented by: Hyoscyamine (Hyoscyamine Oral Drops 1.875 Mg/15 Ml Bottle) 0.125 mg PO Q6HR PRN PRN Reason: Esophageal Spasm Potassium Chloride/Sodium Chloride (Ns-Kcl 20 Meq/L Iv Solution) 1,000 mls @ 100 mls/hr IV .Q10H [facility] Last Admin: 03/06/22 04:23 Dose: 100 mls/hr Documented by: Ketorolac Tromethamine (Ketorolac 15 Mg/Ml 1 Ml Vial) 15 mg IVP Q6HR [facility] Stop: 03/08/22 11:06 Last Admin: 03/06/22 12:01 Dose: 15 mg Documented by: Levothyroxine Sodium (Levothyroxine 100 Mcg Tab) 100 mcg PO SuSa@0630 [facility] Levothyroxine Sodium (Levothyroxine 100 Mcg Tab) 200 mcg PO MoTuWeThFr@0630 [facility] Last Admin: 03/06/22 05:50 Dose: 200 mcg Documented by: Lidocaine HCl (Lidocaine 1% (10mg/Ml) For Iv Start) 0.1 ml INTRADERMA PER PROTOCOL PRN PRN Reason: IV Start Naloxone HCl (Naloxone 0.4 Mg/Ml 1 Ml Vial) 0.2 mg IV Q2M PRN PRN Reason: Opioid Reversal Norethindrone-E. Estradiol-Iron [ Junel Fe 1.5 Mg-30 Mcg Tablet] 1 Each 1 each PO DAILY [facility] Last Admin: 03/06/22 07:40 Dose: 1 each Documented by: Ondansetron HCl (Ondansetron 4 Mg/2 Ml Vial) 4 mg IVP Q6HR PRN PRN Reason: Nausea And Vomiting Last Admin: 03/06/22 00:04 Dose: 4 mg Documented by: Pantoprazole Sodium (Pantoprazole 40 Mg/10 Ml Vial) 40 mg IV DAILY [facility] Last Admin: 03/06/22 07:38 Dose: 40 mg Documented by: Simethicone (Simethicone 40 Mg/0.6 Ml Drops 2,000 Mg/30 Ml Bottle) 40 mg PO Q6HR PRN PRN Reason: Bloating Last Admin: 03/06/22 12:01 Dose: 40 mg Documented by: Spironolactone (Spironolactone 25 Mg Tab) 50 mg PO DAILY [facility] Last Admin: 03/06/22 07:38 Dose: 50 mg Documented by: PHYSICAL EXAMINATION: GENERAL: The patient is alert and oriented x4, Well developed, well nourished. morbidly obese HEENT: Pupils are round and equally reacting to light. EOMI. no scleral icterus. No conjunctival pallor. Normocephalic, atraumatic. No pharyngeal erythema. No thyromegaly. CARDIOVASCULAR: S1 and S2 muffled PULMONARY: diminished breath sounds bilaterally with no wheezing or rhonchi noted. ABDOMEN: soft. morbidly obese, mildly tender on exam in the epigastric region. non-distended, positive bowel sounds. No palpable organomegaly. MUSCULOSKELETAL: No joint swelling or deformity. EXTREMITIES: No cyanosis, clubbing, or pedal edema. NEUROLOGICAL: Gross neurological examination did not reveal any focal deficits. SKIN: No rashes. Assessment: morbid obesity with a BMI of 41.9,status post laparoscopically sleeve gastrectomy WBC mildly elevated most likely reactive from surgery, improved hypertension history Gastroesophageal reflux disease Osteoarthritis Hypothyroidism Chronic acne takes Aldactone daily GI prophylaxis DVT prophylaxis Full code Plan: patient is status post sleeve gastrectomy and is maintained on clear liquids per surgery recommendations. All medications have been resumed and patient is tolerating the clear liquids. Patient reports to some mid epigastric pain on occasion with liquid after drinking and encourage the patient to take smaller steps and sit up while drinking. Surgery recommends close observation overnight and tolerance and improvement in abdominal pain. WBC improved at 6.89 and CBC is within normal limits. Magnesium is 2.1. Encouraged increased activity as tolerated and continuing to use incentive spirometer at least 10 times every hour while awake. We will continue to follow during hospitalization. Thank you for this consultation. The impression and plan of care has been dictated by Maria Guadalupe Ortega, nurse practitioner as directed. MD Lynsey I have performed a history and examination and MDM of this patient, discussed the same with the dictator, and agree with the dictator's assessment and plan as written ,documented as a scribe. Based on total visit time, I have performed more than 50% of the visit. Any additional findings or plans will be noted. Objective - Vital Signs Vital signs: Vital Signs Temp 98 F 03/06/22 07:01 Pulse 59 L 03/06/22 07:01 Resp 17 03/06/22 07:01 BP 122/77 03/06/22 07:01 Pulse Ox 100 03/06/22 07:01 Intake & Output 03/05/22 03/06/22 03/06/22 18:59 06:59 18:59 Weight 132.5 kg Other: # Voids 3 2 - Labs CBC & Chem 7: 03/06/22 05:36 03/05/22 04:57 Labs: Abnormal Lab Results - Last 24 Hours (Table) 03/06/22 Range/Units 05:36 RBC 3.42 L (4.10-5.20) X 10*6/uL Hgb 10.2 L (12.0-15.0) g/dL Hct 33.4 L (37.2-46.3) % MCV 97.7 H (80.0-97.0) fL MCHC 30.5 L (32.0-37.0) g/dL
[2022-03-07] MEDS: 0.9% NACL WITH KCL 20 MEQ/L 1,000 ML IV SCH ×2 (03:55→11:08)
[2022-03-07] MEDS: LEVOTHYROXINE 100 MCG TAB PO SCH (05:04)
[2022-03-07] MEDS: KETOROLAC 15 MG/ML 1 ML VIAL IVP SCH ×2 (05:05→11:30)
[2022-03-07] MEDS: SIMETHICONE 40 MG/0.6 ML DROPS 2,000 MG/30 ML BOTTLE PO PRN ×2 (05:24→11:32)
[2022-03-07 07:11] VITALS: BP 112/69; PULSE 64; TEMP 97.9
[2022-03-07] MEDS: SPIRONOLACTONE 25 MG TAB PO SCH (08:30)
[2022-03-07] MEDS: ENOXAPARIN 30 MG/0.3 ML SYRINGE SQ SCH (08:31)
[2022-03-07] MEDS: PANTOPRAZOLE 40 MG/10 ML VIAL IV SCH (08:33)
[2022-03-07] MEDS: ALBUTEROL NEBULIZED 2.5 MG/3 ML INHALATION SCH ×2 (08:38→11:58)
[2022-03-07 08:48] VITALS: RESP 20
--- NOTE | 2022-03-07 12:40 | P.DS ---
Providers Date of admission: 03/04/22 08:27 Expected date of discharge: 03/07/22 Attending physician: Victor Manuel Choudhury Consults: 03/04/22 12:32 Consult Physician Routine Consulting Provider: Lisa Romero Consult Reason/Comments: Medical management Do you want consulting provider notified?: Yes Primary care physician: Babar [facility] Hospital Course: Discharge diagnosis 1. Morbid obesity status post laparoscopic sleeve gastrectomy 2. Hypertension 3. GERD 4. Osteoarthritis Hospital course This is a 46-year-old female with known morbid obesity status post laparoscopic sleeve gastrectomy. Patient's upper GI shows no evidence of leak or obstruction. Patient reports that her pain is controlled. She is tolerating diet. She reports having flatus. She has been up and ambulating. She is afebrile. She is stable for discharge. Please refer to chart for any further details. Physician Umbrella Frame Maker note has been reviewed by physician. Signing provider agrees with the documented findings, assessment, and plan of care. I have personally seen and examined the patient, reviewed the GEOSPATIAL APPLICATIONS DEVELOPER /PAs history, exam and MDM and agree with the assessment and plan as written. Based on total visit time, I have performed more than 50% of the visit. As above: Patient doing well today. Tolerating diet. Discomfort when drinking is much less and she is already drank about 30 ounces. May discharge. Follow- up next Friday with myself. Patient Condition at Discharge: Stable Plan - Discharge Summary Discharge Rx Participant: No New Discharge Prescriptions: New bisacodyL [Dulcolax] 5 mg PO DAILY PRN #10 tab PRN Reason: Constipation Simethicone 40 mg/0.6 ml Drops [Mylicon Drops] 40 mg PO PCHS PRN #30 ml PRN Reason: Gas Omeprazole [PriLOSEC] 40 mg PO DAILY #30 cap traMADol HCL [Ultram] 50 mg PO Q6HR PRN 3 Days #12 tab PRN Reason: Pain Ondansetron Odt [Zofran Odt] 4 mg PO Q8HR PRN #9 tab PRN Reason: Nausea Continue Levothyroxine Sodium [Synthroid] 200 mcg PO MOTUWETHFR Spironolactone [Aldactone] 50 mg PO DAILY Norethindrone-E.estradiol-Iron [Junel Fe 1.5 mg-30 Mcg Tablet] 1 each PO DAILY L.acidoph,Paracasei, B.lactis [Probiotic] 1 tab PO DAILY Levothyroxine Sodium [Synthroid] 100 mcg PO SUSA No Action Multivitamins, Thera [Multivitamin (formulary)] 1 tab PO DAILY Zinc 50 mg PO DAILY Ferrous Sulfate [Feosol] 325 mg PO DAILY Vitamin C/Biotin [Hair, Skin and Nails Chew] 1 tab PO DAILY Cholecalciferol (Vitamin D3) [Vitamin D3 (125 MCG = 5,000 IU)] 250 mcg PO DAILY Calcium Carbonate [Calcium] 600 mg PO DAILY Ascorbic Acid [Vitamin C] 1,000 mg PO DAILY Discharge Medication List L.acidoph,Paracasei, B.lactis [Probiotic] 1 tab PO DAILY 06/14/21 [History] Levothyroxine Sodium [Synthroid] 200 mcg PO MOTUWETHFR 06/14/21 [History] Multivitamins, Thera [Multivitamin (formulary)] 1 tab PO DAILY 06/14/21 [History] Spironolactone [Aldactone] 50 mg PO DAILY 06/14/21 [History] Zinc 50 mg PO DAILY 06/14/21 [History] Norethindrone-E.estradiol-Iron [Junel Fe 1.5 mg-30 Mcg Tablet] 1 each PO DAILY 12/06/21 [History] Ascorbic Acid [Vitamin C] 1,000 mg PO DAILY 02/28/22 [History] Calcium Carbonate [Calcium] 600 mg PO DAILY 02/28/22 [History] Cholecalciferol (Vitamin D3) [Vitamin D3 (125 MCG = 5,000 IU)] 250 mcg PO DAILY 02/28/22 [History] Ferrous Sulfate [Feosol] 325 mg PO DAILY 02/28/22 [History] Levothyroxine Sodium [Synthroid] 100 mcg PO SUSA 02/28/22 [History] Vitamin C/Biotin [Hair, Skin and Nails Chew] 1 tab PO DAILY 02/28/22 [History] Omeprazole [PriLOSEC] 40 mg PO DAILY #30 cap 03/07/22 [Rx] Ondansetron Odt [Zofran Odt] 4 mg PO Q8HR PRN #9 tab 03/07/22 [Rx] Simethicone 40 mg/0.6 ml Drops [Mylicon Drops] 40 mg PO PCHS PRN #30 ml 03/07/22 [Rx] bisacodyL [Dulcolax] 5 mg PO DAILY PRN #10 tab 03/07/22 [Rx] traMADol HCL [Ultram] 50 mg PO Q6HR PRN 3 Days #12 tab 03/07/22 [Rx] [facility] [place] [place] [facility] [place] [facility]08/22 10:30 am Patient Instructions/Handouts: Laparoscopic Sleeve Gastrectomy (DC) Activity/Diet/Wound Care/Special Instructions: No lifting over 10 pounds You may shower. No soaking or tub baths for 2 weeks Very light activity until you are reevaluated at your follow up appointment with your surgeon No straws or carbonated beverages Hold taking vitamins until seen by surgeon in office Discharge Disposition: HOME SELF-CARE
--- NOTE | 2022-03-07 16:51 | P.PN ---
Subjective Progress Note Date: 03/07/22 - Reason for Consult Consult date: 03/05/22 Medical management status post laparoscopic gastric sleeve - History of Present Illness This is a pleasant 46-year-old female who was admitted under surgical services for elective laparoscopic sleeve gastrectomy with Dr. Choudhury yesterday and we are consulted for medical management. patient has a past medical history of morbid obesity, hypertension, osteoarthritis, hypothyroidism, degenerative disc disease, former smoker. Patient had been following with Dr. Weber in the outpatient setting and her primary care provider is Dr. Mariana Perry. Patient reports to taking Aldactone daily and this is used for acne that is prescribed by her primary care provider.patient's WBC mildly elevated at 12.64 with a hemoglobin of 11.2 and platelets are 316. Sodium is 136 with a potassium 4.6, BUN is 7, creatinine is 0.61, magnesium mildly low at 1.8 and will replace per protocol. Patient had upper GI series status post gastrectomy today showing no evidence of leak or significant obstruction and patient will be started on clear liquids per surgical services. appropriate home medications will be resumed and we will follow with general surgery during hospitalization. 03/06/2022 She is seen in follow-up this morning reports to having gas and is status post sleeve gastrectomy. Patient denies any bowel movements as of yet and has been ambulating frequently. Patient with some mild occasional nausea although much improved from yesterday she reports. Patient having some increased epigastric pain with liquids especially after drinking. General surgery is aware recommending close observation over the next 24 hours and also encourage the patient to take smaller sips. Patient also reports to having a couple episodes of diarrhea this morning. Patient is maintained on bariatric clear liquids and will continue. WBC improved and is 6.89 today. Magnesium is 2.1. Patient is afebrile and denies any chest pain or shortness of breath. 03/07/2022 Patient seen today and feeling well and would like to go home. Patient has been tolerating more of her liquids taking slow small sips and sitting upright. Patient is continued on clear liquid bariatric diet. Vital signs are stable and patient is afebrile. Patient reports to passing gas and had some bowel movements yesterday. Patient has been up and walking frequently. Patient with some dull ache in the lower abdomen but feels improved. Abdominal binder noted. Patient has incentive spirometer at the bedside. Review of systems: Constitutional: No reports of fatigue, fever, or chills Cardiovascular: No reports of chest pain or palpitations Respiratory: No reports of shortness of breath or cough GI: No reports of nausea, vomiting, or diarrhea : No reports of dysuria or retention Neurovascular: No reports of weakness or numbness All medications have been reviewed PHYSICAL EXAMINATION: GENERAL: The patient is alert and oriented x4, Well developed, well nourished. morbidly obese HEENT: Pupils are round and equally reacting to light. EOMI. no scleral icterus. No conjunctival pallor. Normocephalic, atraumatic. No pharyngeal erythema. No thyromegaly. CARDIOVASCULAR: S1 and S2 muffled PULMONARY: diminished breath sounds bilaterally with no wheezing or rhonchi noted. ABDOMEN: soft. morbidly obese, mildly tender on exam in the lower pelvic region. non-distended, positive bowel sounds. No palpable organomegaly. MUSCULOSKELETAL: No joint swelling or deformity. EXTREMITIES: No cyanosis, clubbing, or pedal edema. NEUROLOGICAL: Gross neurological examination did not reveal any focal deficits. SKIN: No rashes. Assessment: morbid obesity with a BMI of 41.9,status post laparoscopically sleeve gastrectomy WBC mildly elevated most likely reactive from surgery, improved hypertension history Gastroesophageal reflux disease Osteoarthritis Hypothyroidism Chronic acne takes Aldactone daily GI prophylaxis DVT prophylaxis Full code Plan: patient is status post sleeve gastrectomy and is maintained on clear liquids per surgery recommendations. All medications have been resumed and patient is tolerating the clear liquids. Patient reports to improved tolerance of liquids and decreased abdominal pain. Encouraged increased activity as tolerated and continuing to use incentive spirometer at least 10 times every hour while awake.Encouraged the patient to continue with [facility] in the outpatient setting. Angel bui reports that she is being discharged today. We will continue to follow during hospitalization. Thank you for this consultation. Encouraged the patient to follow up with pcp Dr. Perry on discharge. The impression and plan of care has been dictated by nurse matt Moseley ctitioner as directed. MD Lynsey I have performed a history and examination and MDM of this patient, discussed the same with the dictator, and agree with the dictator's assessment and plan as written ,documented as a scribe. Based on total visit time, I have performed more than 50% of the visit. Any additional findings or plans will be noted. Objective - Vital Signs Vital signs: Vital Signs Temp 97.9 F 03/07/22 07:10 Pulse 64 03/07/22 08:38 Resp 19 03/07/22 07:10 BP 112/69 03/07/22 07:10 Pulse Ox 97 03/07/22 07:10 Intake & Output 03/06/22 03/07/22 03/07/22 18:59 06:59 18:59 Weight 132.5 kg Other: # Voids 2 2 # Bowel Movements 0 - Labs CBC & Chem 7: 03/06/22 05:36 03/05/22 04:57 Labs: Abnormal Lab Results - Last 24 Hours (Table) 03/06/22 Range/Units 05:36 RBC 3.42 L (4.10-5.20) X 10*6/uL Hgb 10.2 L (12.0-15.0) g/dL Hct 33.4 L (37.2-46.3) % MCV 97.7 H (80.0-97.0) fL MCHC 30.5 L (32.0-37.0) g/dL
[2022-03-09] MEDS ORDERED: LEVOTHYROXINE 100 MCG TAB PO SCH (06:30)
== END 2022-03-07 14:55 | disposition home or self-care (01) | DRG 621 ==
LOC: 2ORMAIN 08:27 → 4SSUR 15:52
PROVIDERS: ADMIT Surgery; ATTEND Surgery
PROC: 8E0W4CZ Robotic Assisted Procedure of Trunk Region, Percutaneous Endoscopic Approach (ICD-10-PCS; 2022-03-04)
PROC: 0DB64Z3 Excision of Stomach, Percutaneous Endoscopic Approach, Vertical (ICD-10-PCS; principal; 2022-03-04 09:40)
DX: E66.01 Morbid (severe) obesity due to excess calories (principal); Z68.41 Body mass index [BMI] 40.0-44.9, adult; E03.9 Hypothyroidism, unspecified; I10 Essential (primary) hypertension; K21.9 Gastro-esophageal reflux disease without esophagitis; M19.90 Unspecified osteoarthritis, unspecified site; Z79.890 Hormone replacement therapy; Z79.899 Other long term (current) drug therapy; Z87.891 Personal history of nicotine dependence; M51.36 Other intervertebral disc degeneration, lumbar region; L70.9 Acne, unspecified; Z28.310 Unvaccinated for COVID-19; Z90.89 Acquired absence of other organs
CPT/HCPCS: 74240; 80051; 80053; 81025; 82310; 82565; 83735; 84100; 84520; 85025; 86850; 86900; 86901; 88307; 94640

== ENCOUNTER → 2022-03-08 | Outpatient (CLI) | payer OTHER ==
[2022-03-08 11:36] VITALS: BP 121/81; PULSE 86; TEMP 97.9; BMI 42.0
== END ==
LOC: BARWHC3 10:28
PROVIDERS: ATTEND Surgery
DX: Z09 Encounter for follow-up examination after completed treatment for conditions other than malignant neoplasm (principal); Z98.84 Bariatric surgery status; Z87.891 Personal history of nicotine dependence
CPT/HCPCS: 99211

== ENCOUNTER → 2022-03-14 | Outpatient (CLI) | payer OTHER ==
[2022-03-14 13:01] VITALS: BP 112/74; PULSE 92; RESP 16; TEMP 97.5; BMI 40.4
--- NOTE | 2022-03-14 13:13 | P.BASOAP ---
Subjective Progress Note Date: 03/14/22 Principal diagnosis: Morbid obesity Patient returns after having sleeve gastrectomy last week. Patient's main complaint is having loose stools. She is having 2-6 loose stools per day. Minimal pain. No heartburn. Tolerating liquid intake. She is getting about 70-80 ounces of liquids daily and about 55-65 g of protein daily. Still on antiacids. No fevers. 10 pound weight loss. Objective - Vital Signs Vital signs: Vital Signs Temp 97.5 F L 03/14/22 12:59 Pulse 92 03/14/22 12:59 Resp 16 03/14/22 12:59 BP 112/74 03/14/22 12:59 Pulse Ox Intake & Output 03/13/22 03/14/22 03/14/22 18:59 06:59 18:59 Weight 127.601 kg - Exam Abdomen: Soft, nondistended, incisions clean and dry, minimal tenderness Assessment/Plan (1) Morbid obesity with BMI of 50.0-59.9, adult Narrative/Plan: Patient doing well at this time. Continue liquid diet and gradually resume normal activities. May try [id number] antidiarrheal if diarrhea continues. Continue antiacids for now. Follow-up 2-3 weeks. Plan: Date: 03/14/22 Initial Weight: 158.36 kg Initial BMI: 50.1 Current Weight: 127.601 kg Current BMI: 40.4 Type of Surgery: Total Volume in Band: Previous Volume: Volume Removed: Volume Added: Band Size:
== END ==
LOC: BARWHC3 12:46
PROVIDERS: ATTEND Surgery
DX: E66.01 Morbid (severe) obesity due to excess calories (principal); Z68.41 Body mass index [BMI] 40.0-44.9, adult
CPT/HCPCS: 99211

== ENCOUNTER → 2022-04-09 | Outpatient (CLI) | payer OTHER ==
[2022-04-09 14:12] VITALS: BP 138/80; PULSE 80; TEMP 98.2; BMI 38.9
--- NOTE | 2022-04-09 14:20 | P.BASOAP ---
Subjective Progress Note Date: 04/09/22 Principal diagnosis: Morbid obesity 47-year-old female returns for 1 month recheck. Underwent sleeve gastrectomy 03/04. Since her last visit her protein input is actually decreased somewhat. Now about 47 g of protein daily. Feels tired at times. She has lost 10 pounds since her last visit. Some heartburn after her prescription for antiacids . Denies pain. Good liquid intake. Objective - Vital Signs Vital signs: Vital Signs Temp 98.2 F 04/09/22 14:10 Pulse 80 04/09/22 14:10 Resp BP 138/80 04/09/22 14:10 Pulse Ox FiO2 Intake & Output 04/08/22 04/09/22 04/09/22 18:59 06:59 18:59 Weight 122.924 kg - Exam Abdomen: Soft, nondistended, incisions clean and dry Assessment/Plan (1) Morbid obesity with BMI of 50.0-59.9, adult Narrative/Plan: Patient doing well at this time. Continue dietary and neck she says regimen. Increase protein intake. Resume antiacids prescription. Follow up for 6 weeks. Check one month labs. Plan: Date: 04/09/22 Initial Weight: 158.36 kg Initial BMI: 50.1 Current Weight: 122.924 kg Current BMI: 38.9 Type of Surgery: Total Volume in Band: Previous Volume: Volume Removed: Volume Added: Band Size:
[2022-04-09 22:38] LABS: HGB 11.8 g/dL (12.0-15.0); MCH 29.7 pg (27.0-32.0); MCHC 31.1 g/dL (32.0-37.0); MCV 95.7 fL (80.0-97.0); Mean Platelet Volume 11.7 fL (9.5-12.2); NRBC Per 100 WBC 0 /100 WBCS (0.0-0.0); Platelet Count 314 X 10*3/uL (140-440); RBC 3.97 X 10*6/uL (4.10-5.20); RDW 12.8 % (11.5-14.5); WBC 9.57 X 10*3/uL (4.50-10.00)
[2022-04-09 23:30] LABS: Albumin 4.1 g/dL (3.8-4.9); Albumin/Globulin Ratio 2.09 (1.60-3.17); Anion Gap 12.4 mmol/L (10.00-18.00); BUN/Creat Ratio 13.28 Ratio (12.00-20.00); Blood Urea Nitrogen 8.4 mg/dL (9.0-27.0); Calcium 9.3 mg/dL (8.7-10.3); Carbon Dioxide 24.2 mmol/L (20.0-27.5); Globulin 1.9 g/dL (1.6-3.3); Non-African American GFR(CKD) 106.1 (60.0-200.0); Potassium 4.6 mmol/L (3.5-5.5); Total Bilirubin 0.2 mg/dL (0.30-1.20)
== END ==
LOC: BARWHC3 13:26
PROVIDERS: ATTEND Surgery
DX: E66.01 Morbid (severe) obesity due to excess calories (principal); K90.89 Other intestinal malabsorption; E55.9 Vitamin D deficiency, unspecified; Z98.84 Bariatric surgery status; Z71.3 Dietary counseling and surveillance; Z68.38 Body mass index [BMI] 38.0-38.9, adult
CPT/HCPCS: 84425; 80053; 82607; 82746; 83540; 85027; 82306; 97803; G0463; 99211

== ENCOUNTER → 2022-05-07 | Outpatient (CLI) | payer OTHER ==
[2022-05-07 14:45] VITALS: BP 127/90; PULSE 62; TEMP 98.2; BMI 37.0
--- NOTE | 2022-05-07 16:01 | P.BASOAP ---
Subjective Progress Note Date: 05/07/22 Principal diagnosis: Morbid obesity Patient returns for recheck. Last seen on 04/09. She is 2 months out from her sleeve gastrectomy. Patient had 1 month labs last visit showing a low iron and low vitamin B1. Patient says that she had stopped taking her iron preoperatively and has not resumed yet. She has had good weight loss at 13 pounds. Heartburn is improved. Mild nausea at times. No pain. Objective - Vital Signs Vital signs: Vital Signs Temp 98.2 F 05/07/22 14:42 Pulse 62 05/07/22 14:42 Resp BP 127/90 05/07/22 14:42 Pulse Ox FiO2 Intake & Output 05/06/22 05/07/22 05/07/22 18:59 06:59 18:59 Weight 117.027 kg - Exam Abdomen: Soft, nontender, nondistended Assessment/Plan (1) Morbid obesity with BMI of 50.0-59.9, adult Narrative/Plan: Patient doing well at this time. Continue dietary and exercise regimen. Continue antiacid therapy. Follow-up 6 weeks. Check three-month labs at that time. Resume iron supplementation in addition to her multivitamin. Begin oral thiamine supplements daily. Plan: Date: 05/07/22 Initial Weight: 158.36 kg Initial BMI: 50.1 Current Weight: 117.027 kg Current BMI: 37.0 Type of Surgery: Total Volume in Band: Previous Volume: Volume Removed: Volume Added: Band Size:
== END ==
LOC: BARWHC3 14:08
PROVIDERS: ATTEND Surgery
DX: E66.01 Morbid (severe) obesity due to excess calories (principal); Z98.84 Bariatric surgery status; Z68.37 Body mass index [BMI] 37.0-37.9, adult
CPT/HCPCS: 99211

== ENCOUNTER → 2022-08-06 | Outpatient (CLI) | payer OTHER ==
[2022-08-06 13:58] VITALS: BP 110/75; PULSE 83; RESP 16; TEMP 98.8; BMI 35.2
--- NOTE | 2022-08-06 14:03 | P.BASOAP ---
Subjective Progress Note Date: 08/06/22 Principal diagnosis: Morbid obesity Patient returns for recheck. Last seen 6 weeks ago. Since then the patient is only had 2 episodes of vomiting. She said this only when she eats too fast. She did have increased heartburn when she ran out of her omeprazole but is well-controlled while she is on it. She had her knee injection. Her knee pain is improved. She is biking more on a daily basis. Objective - Vital Signs Vital signs: Vital Signs Temp 98.8 F 08/06/22 13:56 Pulse 83 08/06/22 13:56 Resp 16 08/06/22 13:56 BP 110/75 08/06/22 13:56 Pulse Ox FiO2 Intake & Output 08/05/22 08/06/22 08/06/22 18:59 06:59 18:59 Weight 111.13 kg - Exam Abdomen: Soft, nontender, nondistended Assessment/Plan (1) Morbid obesity with BMI of 50.0-59.9, adult Narrative/Plan: Patient doing well at this time. Has lost 6 pounds since her last visit. Continue dietary and exercise regimen. Continue antiacid therapy daily. Increase activity now that knee is feeling better. Return visit 6 weeks. We'll check 6 month labs. Plan: Date: 08/06/22 Initial Weight: 158.36 kg Initial BMI: 50.1 Current Weight: 111.13 kg Current BMI: 35.2 Type of Surgery: Vertical Sleeve Gastrectomy Total Volume in Band: Previous Volume: Volume Removed: Volume Added: Band Size:
== END ==
LOC: BARWHC3 13:48
PROVIDERS: ATTEND Surgery
DX: Z71.3 Dietary counseling and surveillance (principal); E66.01 Morbid (severe) obesity due to excess calories; Z68.35 Body mass index [BMI] 35.0-35.9, adult
CPT/HCPCS: 97803; G0463; 99211

== ENCOUNTER → 2022-10-08 | Outpatient (CLI) | payer OTHER ==
[2022-10-08 14:57] VITALS: BP 122/84; PULSE 76; RESP 16; TEMP 97.9; BMI 33.0
--- NOTE | 2022-10-08 15:47 | P.BASOAP ---
Subjective Progress Note Date: 10/08/22 Principal diagnosis: morbid obesity 47-year-old female returns for evaluation. Last seen in August. 15 pound weight loss since then. Knee pain has gotten bad again to a certain degree with the left side being worse than the right. She has had about 2-3 episodes of emesis since her last visit. No significant heartburn. She has been biking daily. She does have hiccups occasionally. She is due for 6 month labs. Objective - Vital Signs Vital signs: Vital Signs Temp 97.9 F 10/08/22 14:52 Pulse 76 10/08/22 14:52 Resp 16 10/08/22 14:52 BP 122/84 10/08/22 14:52 Pulse Ox FiO2 Intake & Output 10/07/22 10/08/22 10/08/22 18:59 06:59 18:59 Weight 104.326 kg - Exam Abdomen: Soft, nontender, nondistended Assessment/Plan (1) Morbid obesity with BMI of 50.0-59.9, adult Narrative/Plan: patient doing well post sleeve gastrectomy. Continue dietary and exercise regimen. Patient was asking what her goals should be. At this time we discussed having a goal of 200 pounds by March. Her BMI of 25 with correlate with a weight of approximately 170 which would be another reasonable goal for her. Continue antiacids. Follow-up 68 weeks. Plan: Date: 10/08/22 Initial Weight: 158.36 kg Initial BMI: 50.1 Current Weight: 104.326 kg Current BMI: 33.0 Type of Surgery: Vertical Sleeve Gastrectomy Total Volume in Band: Previous Volume: Volume Removed: Volume Added: Band Size:
[2022-10-08 22:50] LABS: HCT 40.2 % (37.2-46.3); MCH 31.6 pg (27.0-32.0); MCHC 32.3 g/dL (32.0-37.0); MCV 97.8 fL (80.0-97.0); Mean Platelet Volume 10.6 fL (9.5-12.2); NRBC Per 100 WBC 0 /100 WBCS (0.0-0.0); Platelet Count 365 X 10*3/uL (140-440); RBC 4.11 X 10*6/uL (4.10-5.20); RDW 12.2 % (11.5-14.5); WBC 10.69 X 10*3/uL (4.50-10.00)
[2022-10-09 01:24] LABS: ALT 16 U/L (8-44); AST 14 U/L (13-35); African American GFR (CKD) 114.2 (60.0-200.0); Albumin 4.3 g/dL (3.8-4.9); Albumin/Globulin Ratio 2.22 (1.60-3.17); Alkaline Phosphatase 79 U/L (41-126); Blood Urea Nitrogen 16.7 mg/dL (9.0-27.0); Calcium 9.2 mg/dL (8.7-10.3); Chloride 102 mmol/L (96-109); Globulin 1.9 g/dL (1.6-3.3); Glucose 88 mg/dL (70-110); Iron 31 ug/dL (50-170); Non-African American GFR(CKD) 98.5 (60.0-200.0); Potassium 4.5 mmol/L (3.5-5.5); Sodium 139 mmol/L (135-145); Total Bilirubin <0.15 mg/dL (0.30-1.20); Total Protein 6.2 g/dL (6.2-8.2)
== END ==
LOC: BARWHC3 14:45
PROVIDERS: ATTEND Surgery
DX: E66.01 Morbid (severe) obesity due to excess calories (principal); K90.89 Other intestinal malabsorption; E55.9 Vitamin D deficiency, unspecified; Z68.33 Body mass index [BMI] 33.0-33.9, adult
CPT/HCPCS: 84425; 80053; 82607; 82746; 83540; 85027; 82306; 83036; 93005; 36415; G0463; 99211

== ENCOUNTER → 2023-02-11 | Outpatient (CLI) | payer OTHER ==
[2023-02-11 14:08] VITALS: BP 104/70; PULSE 78; RESP 16; TEMP 98.5; BMI 29.9
--- NOTE | 2023-02-11 16:33 | P.BASOAP ---
Subjective Progress Note Date: 02/11/23 Principal diagnosis: Morbid obesity Patient returns for recheck. Last seen 12/17. Has lost 5 pounds since her last visit. Says she has had dysphagia twice. She has had emesis 2 times since her last visit. Still taking antiacids daily but GERD symptoms well controlled with that. She recently joined a support group. She is still riding her bike daily. Still having knee pain. Objective - Vital Signs Vital signs: Vital Signs Temp 98.5 F 02/11/23 14:05 Pulse 78 02/11/23 14:05 Resp 16 02/11/23 14:05 BP 104/70 02/11/23 14:05 Pulse Ox FiO2 Intake & Output 02/10/23 02/11/23 02/11/23 18:59 06:59 18:59 Weight 94.801 kg - Exam Abdomen: Soft, nontender, nondistended Assessment/Plan (1) Morbid obesity with BMI of 50.0-59.9, adult Narrative/Plan: Patient overall doing well at this time. Continue dietary and exercise regimen. Check annual labs next month. Plan repeat medical exam 3 months. Continue antiacids for now. Plan: Date: 02/11/23 Initial Weight: 158.36 kg Initial BMI: 50.1 Current Weight: 94.801 kg Current BMI: 29.9 Type of Surgery: Vertical Sleeve Gastrectomy Total Volume in Band: Previous Volume: Volume Removed: Volume Added: Band Size:
== END ==
LOC: BARWHC3 13:31
PROVIDERS: ATTEND Surgery
DX: E66.01 Morbid (severe) obesity due to excess calories (principal); K21.9 Gastro-esophageal reflux disease without esophagitis; Z68.30 Body mass index [BMI] 30.0-30.9, adult; Z71.3 Dietary counseling and surveillance
CPT/HCPCS: 99211

== ENCOUNTER → 2023-03-05 | Outpatient (CLI) | payer OTHER ==
[2023-03-05 20:01] LABS: HCT 42.1 % (37.2-46.3); MCH 30.2 pg (27.0-32.0); MCHC 30.9 g/dL (32.0-37.0); MCV 97.7 fL (80.0-97.0); Mean Platelet Volume 10.7 fL (9.5-12.2); NRBC Per 100 WBC 0 /100 WBCS (0.0-0.0); Platelet Count 344 X 10*3/uL (140-440); RBC 4.31 X 10*6/uL (4.10-5.20); RDW 12.2 % (11.5-14.5)
[2023-03-05 20:45] LABS: ALT 10 U/L (8-44); AST 11 U/L (13-35); African American GFR (CKD) 119.5 (60.0-200.0); Albumin/Globulin Ratio 1.97 (1.60-3.17); Alkaline Phosphatase 74 U/L (41-126); BUN/Creat Ratio 26.78 Ratio (12.00-20.00); Blood Urea Nitrogen 18.4 mg/dL (9.0-27.0); Calcium 9.4 mg/dL (8.7-10.3); Carbon Dioxide 25.8 mmol/L (20.0-27.5); Chloride 107 mmol/L (96-109); Glucose 85 mg/dL (70-110); Iron 57 ug/dL (50-170); Non-African American GFR(CKD) 103.1 (60.0-200.0); Potassium 4.8 mmol/L (3.5-5.5); Sodium 143 mmol/L (135-145); Total Bilirubin <0.15 mg/dL (0.30-1.20); Total Protein 6.1 g/dL (6.2-8.2)
== END | disposition home or self-care (01) ==
LOC: LABWHC1 12:24
PROVIDERS: ATTEND Surgery
DX: E55.9 Vitamin D deficiency, unspecified (principal); E66.01 Morbid (severe) obesity due to excess calories; K90.89 Other intestinal malabsorption
CPT/HCPCS: 36415; 80053; 82306; 82607; 82746; 83540; 84425; 85027

== ENCOUNTER → 2023-05-13 | Outpatient (CLI) | payer OTHER ==
[2023-05-13 14:39] VITALS: BP 116/80; PULSE 62; RESP 16; TEMP 98.5; BMI 29.2
--- NOTE | 2023-05-13 14:59 | P.BASOAP ---
Subjective Progress Note Date: 05/13/23 Principal diagnosis: Morbid obesity Patient returns for recheck. She was last seen in February. Still taking antiacids daily. GERD symptoms well-controlled. Had 1 episode of vomiting with Taco Haynes. She had her annual labs checked in March which all looked good. Complaining of rash beneath skin folds. 5 pound weight loss since last visit. Objective - Vital Signs Vital signs: Vital Signs Temp 98.5 F 05/13/23 14:36 Pulse 62 05/13/23 14:36 Resp 16 05/13/23 14:36 BP 116/80 05/13/23 14:36 Pulse Ox FiO2 Intake & Output 05/12/23 05/13/23 05/13/23 18:59 06:59 18:59 Weight 92.533 kg - Exam Abdomen: Soft, nontender, nondistended Assessment/Plan (1) Morbid obesity with BMI of 50.0-59.9, adult Narrative/Plan: Patient doing well after sleeve gastrectomy last March. Recent annual labs looked good. Still with ongoing weight loss. Continue dietary and exercise regimen. Follow-up 6 months. Plan: Date: 05/13/23 Initial Weight: 158.36 kg Initial BMI: 50.1 Current Weight: 92.533 kg Current BMI: 29.2 Type of Surgery: Total Volume in Band: Previous Volume: Volume Removed: Volume Added: Band Size:
== END ==
LOC: BARWHC3 14:02
PROVIDERS: ATTEND Surgery
DX: E66.01 Morbid (severe) obesity due to excess calories (principal); K21.9 Gastro-esophageal reflux disease without esophagitis; Z71.3 Dietary counseling and surveillance; Z68.29 Body mass index [BMI] 29.0-29.9, adult; Z98.84 Bariatric surgery status
CPT/HCPCS: 99211

== ENCOUNTER → 2023-11-25 | Outpatient (CLI) | payer OTHER ==
[2023-11-25 14:12] VITALS: BP 115/78; PULSE 69; RESP 16; TEMP 98.1; BMI 29.1
--- NOTE | 2023-11-25 14:27 | P.BASOAP ---
Subjective Progress Note Date: 11/25/23 Principal diagnosis: Morbid obesity Patient here for recheck. Last seen in May. Still having some issues with a rash beneath her skin folds. She tried weaning herself off of omeprazole but started having more reflux at night and went back on it. Has had some intermittent regurgitation episodes as well. Usually it is more slimy mucus. Sometimes will happen a few times per week. She thinks it is related to eating too much volume. She has lost 1 pound since her last visit. Otherwise feels well. Objective - Vital Signs Vital signs: Vital Signs Temp 98.1 F 11/25/23 14:04 Pulse 69 11/25/23 14:04 Resp 16 11/25/23 14:04 BP 115/78 11/25/23 14:04 Pulse Ox FiO2 Intake & Output 11/24/23 11/25/23 11/25/23 18:59 06:59 18:59 Weight 92.079 kg - Exam Abdomen: Soft, nontender, nondistended Assessment/Plan (1) Morbid obesity with BMI of 50.0-59.9, adult Narrative/Plan: Patient doing fairly well at this time. Continue dietary and exercise regimen. Continue omeprazole daily. Patient will monitor her symptoms of regurgitation. If symptoms persist or worsen we discussed the option of upper endoscopy which she would like to avoid. Plan follow-up in April. Check to your labs at that time. Plan: Date: 11/25/23 Initial Weight: 158.36 kg Initial BMI: 50.1 Current Weight: 92.079 kg Current BMI: 29.1 Type of Surgery: Vertical Sleeve Gastrectomy Total Volume in Band: Previous Volume: Volume Removed: Volume Added: Band Size:
== END ==
LOC: BARWHC3 13:57
PROVIDERS: ATTEND Surgery
DX: E66.01 Morbid (severe) obesity due to excess calories (principal); Z71.3 Dietary counseling and surveillance; Z68.29 Body mass index [BMI] 29.0-29.9, adult
CPT/HCPCS: 99211

== ENCOUNTER → 2024-04-13 | Outpatient (CLI) | payer OTHER ==
[2024-04-13 14:36] VITALS: BP 109/76; PULSE 84; RESP 16; TEMP 98.4; BMI 29.4
--- NOTE | 2024-04-13 16:43 | P.BASOAP ---
Subjective Progress Note Date: 04/13/24 Principal diagnosis: Morbid obesity Patient returns for recheck. Last seen in November. Patient says she still has been trying to minimize PPI use given her family history of dementia. Despite that the patient says she has been taking antiacids most days. Still having reflux symptoms as well. Less regurgitation issues. She has gained 2 pounds since her last visit. No abdominal pain. Objective - Vital Signs Vital signs: Vital Signs Temp 98.4 F 04/13/24 14:33 Pulse 84 04/13/24 14:33 Resp 16 04/13/24 14:33 BP 109/76 04/13/24 14:33 Pulse Ox FiO2 Intake & Output 04/12/24 04/13/24 04/13/24 18:59 06:59 18:59 Weight 92.986 kg - Exam Abdomen: Soft, nontender, nondistended Assessment/Plan (1) Morbid obesity with BMI of 50.0-59.9, adult Narrative/Plan: Patient with ongoing reflux post sleeve gastrectomy 2 years ago. Recommend that she take her PPIs daily. Continue dietary and exercise regimen. Consider EGD if symptoms increase. Check annual labs. Follow-up 6 months. Plan: Date: 04/13/24 Initial Weight: 158.36 kg Initial BMI: 50.1 Current Weight: 92.986 kg Current BMI: 29.4 Type of Surgery: Vertical Sleeve Gastrectomy Total Volume in Band: Previous Volume: Volume Removed: Volume Added: Band Size:
[2024-04-13 18:40] LABS: HCT 40.6 % (37.2-46.3); MCH 31.8 pg (27.0-32.0); MCV 99.3 FL (80.0-97.0); Mean Platelet Volume 10.1 FL (9.5-12.2); NRBC Per 100 WBC 0 X 10*3/uL (0.00-0.01); Platelet Count 314 X 10*3/uL (140-440); RBC 4.09 X 10*6/uL (4.10-5.20); RDW 11.9 % (11.5-14.5); WBC 9.12 X 10*3/uL (4.50-10.00)
[2024-04-13 19:29] LABS: ALT 12 U/L (8-44); AST 14 U/L (13-35); Albumin 4.4 g/dL (3.8-4.9); Alkaline Phosphatase 67 U/L (41-126); BUN/Creat Ratio 22.71 Ratio (12.00-20.00); Blood Urea Nitrogen 15.9 mg/dL (9.0-27.0); Calcium 9.3 mg/dL (8.7-10.3); Carbon Dioxide 24.8 mmol/L (21.6-31.8); Chloride 104 mmol/L (96-109); Glucose 82 mg/dL (70-110); Iron 50 UG/DL (50-170); Potassium 4.1 mmol/L (3.5-5.5); Sodium 141 mmol/L (135-145); Total Bilirubin <0.2 mg/dL (0.3-1.2); Total Protein 6.4 g/dL (6.2-8.2)
[2024-04-15 07:07] LABS: Vitamin A 72 ug/dL (38-106)
== END ==
LOC: BARWHC3 14:00
PROVIDERS: ATTEND Surgery
DX: E66.01 Morbid (severe) obesity due to excess calories (principal); E55.9 Vitamin D deficiency, unspecified; K90.89 Other intestinal malabsorption; K21.9 Gastro-esophageal reflux disease without esophagitis; Z90.3 Acquired absence of stomach [part of]; Z68.43 Body mass index [BMI] 50.0-59.9, adult; Z71.3 Dietary counseling and surveillance; Z98.84 Bariatric surgery status
CPT/HCPCS: 84255; 84425; 80053; 82607; 82746; 83540; 84590; 85027; 82306; G0463; 99211

== ENCOUNTER → 2024-10-12 | Outpatient (CLI) | payer OTHER ==
[2024-10-12 14:50] VITALS: BP 116/79; PULSE 66; RESP 16; TEMP 98; BMI 30.9
--- NOTE | 2024-10-12 15:14 | P.BASOAP ---
Subjective Progress Note Date: 10/12/24 Principal diagnosis: Morbid obesity Patient returns for reevaluation. She was last seen in April. She has gained about 11 pounds since then. She has been snacking more. Think she is eating slightly more food than previous. Still has episodes of feeling full and approximately 10 times per month will have episodes of regurgitation/vomiting. Takes antiacids daily. Sometimes takes an additional Pepcid at night. Had labs checked in April which looked good. Heartburn fairly well-controlled with current antiacid regimen. Exercising a bit less. Objective - Vital Signs Vital signs: Vital Signs Temp 98 F 10/12/24 14:46 Pulse 66 10/12/24 14:46 Resp 16 10/12/24 14:46 BP 116/79 10/12/24 14:46 Pulse Ox FiO2 Intake & Output 10/11/24 10/12/24 10/12/24 18:59 06:59 18:59 Weight 97.976 kg - Exam Abdomen: Soft, nontender, nondistended Assessment/Plan (1) Morbid obesity with BMI of 50.0-59.9, adult Narrative/Plan: Patient doing well at this time. Still having intermittent episodes of vomiting. Discussed the option of upper endoscopy. She will consider scheduling and will call me if she would like to proceed. Continue antiacid therapy. Increase exercise regimen. Recheck 6 months. Check annual labs then. Plan: Date: 10/12/24 Initial Weight: 158.36 kg Initial BMI: 50.1 Current Weight: 97.976 kg Current BMI: 30.9 Type of Surgery: Vertical Sleeve Gastrectomy Total Volume in Band: Previous Volume: Volume Removed: Volume Added: Band Size:
== END ==
LOC: BARWHC3 14:25
PROVIDERS: ATTEND Surgery
DX: E66.01 Morbid (severe) obesity due to excess calories (principal); Z68.30 Body mass index [BMI] 30.0-30.9, adult
CPT/HCPCS: 99211

== ENCOUNTER → 2025-04-12 | Outpatient (CLI) | payer OTHER ==
[2025-04-12 15:18] VITALS: BP 116/82; PULSE 67; RESP 16; TEMP 98.1; BMI 32.7
--- NOTE | 2025-04-12 15:49 | P.BASOAP ---
Subjective Progress Note Date: 04/12/25 Principal diagnosis: Morbid obesity Patient returns for recheck. She was last seen 6 months ago. Since then the patient says her episodes of vomiting have improved. Having less nighttime reflux. Still takes omeprazole once every morning and occasionally will take Pepcid at night. She is due for annual lab work. She has gained 12 pounds since her last visit. Says she is now working 5 days a week and has been making some poor choices at times. Not exercising much. Very busy with family activities. Objective - Vital Signs Vital signs: Vital Signs Temp 98.1 F 04/12/25 15:11 Pulse 67 04/12/25 15:11 Resp 16 04/12/25 15:11 BP 116/82 04/12/25 15:11 Pulse Ox FiO2 Intake & Output 04/11/25 04/12/25 04/12/25 18:59 06:59 18:59 Weight 103.419 kg - Exam Abdomen: Soft, nontender, nondistended Assessment/Plan (1) Morbid obesity with BMI of 50.0-59.9, adult Narrative/Plan: Patient doing fairly well at this time. Still having occasional episodes of vomiting. Says it is improved since her last visit. We did discuss the options of upper endoscopy. Also discussed options of combining that with colonoscopy however patient had previous Cologuard that was negative. Patient says since her symptoms are improving she wants to hold off on it which I think is quite reasonable. Continue monitoring oral intake. Increase exercise as much as tolerated. Check annual lab work. Recheck 6 months. Plan: Date: 04/12/25 Initial Weight: 158.36 kg Initial BMI: 50.1 Current Weight: 103.419 kg Current BMI: 32.7 Type of Surgery: Vertical Sleeve Gastrectomy Total Volume in Band: Previous Volume: Volume Removed: Volume Added: Band Size:
[2025-04-12 19:39] LABS: ALT 12 U/L (8-44); AST 15 U/L (13-35); Albumin 3.9 g/dL (3.8-4.9); Albumin/Globulin Ratio 1.86 Ratio (1.60-3.17); Alkaline Phosphatase 59 U/L (41-126); BUN/Creat Ratio 26.57 Ratio (12.00-20.00); Blood Urea Nitrogen 18.6 mg/dL (9.0-27.0); Calcium 8.8 mg/dL (8.7-10.3); Carbon Dioxide 24.2 mmol/L (21.6-31.8); Chloride 107 mmol/L (96-109); Globulin 2.1 g/dL (1.6-3.3); Glucose 95 mg/dL (70-110); Potassium 4.2 mmol/L (3.5-5.5); Sodium 142 mmol/L (135-145); Total Bilirubin <0.2 mg/dL (0.3-1.2)
[2025-04-12 20:16] LABS: HCT 37.8 % (37.2-46.3); MCH 31.6 pg (27.0-32.0); MCHC 31.7 g/dL (32.0-37.0); MCV 99.5 FL (80.0-97.0); Mean Platelet Volume 10.8 FL (9.5-12.2); NRBC Per 100 WBC 0 X 10*3/uL (0.00-0.01); Platelet Count 251 X 10*3/uL (140-440); RDW 11.7 % (11.5-14.5)
== END ==
LOC: BARWHC3 14:57
PROVIDERS: ATTEND Surgery
DX: E66.01 Morbid (severe) obesity due to excess calories (principal); Z68.32 Body mass index [BMI] 32.0-32.9, adult
CPT/HCPCS: 84425; 80053; 82607; 82746; 85027; 82306; G0463; 99211